=== PATIENT | female | born 1970 | race Caucasian/White ===

== ENCOUNTER 2023-08-18 11:17 | Inpatient (IN) | payer OTHER, SELFPAY ==
[2023-08-18] VITALS (66 sets, daily range): BP systolic 75–135; BP diastolic 46–83
--- NOTE | 2023-08-18 07:47 | ED.GENMED ---
History of Present Illness
<Trupti Piper PA-C - Last Filed: 08/18/23 11:51>
General
Chief Complaint: Weakness
Source: patient
Exam Limitations: none
Time Seen by Provider: 08/18/23 07:40
Nursing documentation reviewed up to this point in time: agreed with
Travel History
Have you had any contact with someone who has COVID-19?: No
Do you have any symptoms of coronavirus? Fever > 100 degrees, chills, cough, shortness of breath, sore throat, loss of taste or smell, muscle aches, or headache?: No
History of Present Illness
History of Present Illness:
53-year-old female with a history of diet-controlled diabetes, previous history of kidney stones presents for generalized weakness, nausea, chills, dehydration since 3�21. Patient says the onset of symptoms was mostly pain in her back. She thought
maybe she was going to be passing a kidney stone which she has done before previously. She is never had an infected stone but has had pyelonephritis before. The pain ultimately went away the following day but she became nauseated and had chills
and was very fatigued. Patient says she pretty much slept over 12 hours overnight and really has had no appetite and extreme fatigue with chills. She has not taken her temperature. She is still urinating but says not much. She thought she was
constipated so she took a Dulcolax and was able to have 2 bowel movements yesterday. She is not reporting any back pain or abdominal pain other than nausea. She has not had a sore throat or cough, neck stiffness, rash, recent travel, chest pain or
shortness of breath. She did not take anything for fever today
Past History
<Trupti Piper PA-C - Last Filed: 08/18/23 11:51>
Past History
ED Past Medical History: NIDDM and Other (broken left wrist in the past, kidney stones)
ED Past Surgical History: Appendectomy, (x2) and Urological
Patient has exhibited threatening behavior?: No
Social History
Tobacco: Smoker
Alcohol: None
Personal:
Living: with family
Employment: Employed
Family History
Family History: Unable to obtain
Review of Systems
<Trupti Piper PA-C - Last Filed: 08/18/23 11:51>
Review of Systems
Allergies reviewed?: Yes
Unable to obtain full review of systems at this time due to: due to acuity
All Other Systems: Not applicable
Phy Exam
<Trupti Piper PA-C - Last Filed: 08/18/23 11:51>
Physical Exam
Physical Exam:
GENERAL: Eyes closed but easily arousable, ill-appearing,
HEAD: NCAT
NECK: No neck stiffness
EYE: pupils equal and reactive, EOMs intact.
ENT: o/p clr, very dry mouth. no hemotympanum
CARDIAC: Regular rate and rhythm, no edema
LUNGS: Clear breath sounds bilaterally, no acu tachycardic to 140s no edema, no appreciated murmur te respiratory distress, no wheezes/rales/rhonchi
ABDOMEN: Soft, mild right upper quadrant tenderness, no r/g, no cvat
NEUROLOGICAL: Alert and oriented, no focal neuro deficits, CN intact, 5/5 strength, sensation intact
SKIN: Warm and dry,
MUSCULOSKELETAL: No edema, well perfused.
PSYCH: Normal and appropriate interaction.
Course
<Trupti Piper PA-C - Last Filed: 08/18/23 11:51>
Orders/Labs/Results
Orders:
Orders
08/18/23 Breakfast
NPO
Allow oral meds: No
Allow clear liquids: No
08/18/23 07:28
Electrocardiogram (*1) Urgent
Reason for Study: Bradycardia / Tachycardia
EKG- Treatment ONCE
08/18/23 07:46
Cardiac Monitoring- Treatment ONCE
Straight cath- Treatment ONCE
0.9% Sodium Chloride 1000 ml [Nss] 1,000 ml IV BOLUS
Acetaminophen 1000MG/100Ml [Ofirmev] 1,000 mg in 100 ml IV ONCE
Acetaminophen IV Indication:: Ileus/Delayed Bowel Func.
Ondansetron Injectable [Zofran] 4 mg IV NOW STA
08/18/23 08:01
Piperacillin/Tazo 3.375 Gram [Zosyn] 3.375 gram in 50 ml IV NOW
08/18/23 08:14
COVID-19 Antigen Urgent
Source: Nasal Swab
Complete Blood Count/With Diff Urgent
Comprehensive Metabolic Panel Urgent
Lactic Acid Q4H
Comment: CANCEL 2nd LACTIC ACID IF 1st LACTIC ACID IS LESS THAN 2
Lipase Urgent
Blood Culture Q30M
ANEUDY Source: Blood/Venous
Specimen Description:
Influenza A+B Rapid Molecular Urgent
ANEUDY Source: Nasal Swab
Specimen Description:
08/18/23 08:24
0.9% Sodium Chloride 1000 ml [Nss] 1,000 ml IV BOLUS
08/18/23 08:27
CT Abd/pelvis Wo Iv Cont Urgent
Reason For Exam: RIGHT SIDE PAIN, SEPSIS, EVAL STONE VS. PYELO
08/18/23 08:52
Blood Culture Q30M
ANEUDY Source: Blood/Venous
Specimen Description:
08/18/23 09:04
Urinalysis Reflex To Culture Urgent
Date Specimen was Collected: 08/18/23
Time Specimen was Collected: 09:02
Urine Microscopic Reflex Cult Urgent
Urine Culture Urgent
ANEUDY Source: U
Specimen Description:
Date Specimen was Collected: 08/18/23
Time Specimen was Collected: 09:02
08/18/23 09:15
NORepinephrine 4 MG/250 ML [Levophed] 4 mg in 250 ml IV PER PROTOCOL
Initial dose in mcg/min, then titrate:: 2
Titrate to keep:: SBP > 90 mmHg
Titrate by mcg/min:: 1-2 mcg/min
Frequency of titrations (minutes):: 5
Maximum dose in ICU in mcg/min:: 30
Maximum dose in IMU in mcg/min:: 8
Maximum dose in IVU in mcg/min:: 4
Begin to taper infusion when:: Remained at goal for 4hrs
Taper by mcg/min:: 1-2 mcg/min
Frequency of taper (minutes) if patient maintains goal:: 30
Taper to off?: Yes
If infusion off & no longer maintaining goal:: Contact Provider
08/18/23 09:16
Straight cath- Treatment ONCE
08/18/23 09:30
0.9% Sodium Chloride 1000 ml [Nss] 1,000 ml IV BOLUS
08/18/23 10:49
Admit/Transfer Patient As Directed
Co-Sign Provider:
Level of Care: Inpatient admission
Assign to:: ICU
Physician / Group: Malik
Diagnosis: septic shock/obstructing renal stone
Reason for Hospitalization: IVF/IV pressors/OR/ABX
Expected length of stay greater than two midnights?: Yes
ELOS- Estimated Length of Stay in days: 4
I certify the patient meets the requirements for IP care: Yes
08/18/23 10:50
Code Status As Directed
Resuscitation Status: Full Code
08/18/23 12:00
Lactic Acid Q4H
Comment: CANCEL 2nd LACTIC ACID IF 1st LACTIC ACID IS LESS THAN 2
08/18/23 13:21
Lactic Acid Q4H
Comment: repeat q4 hours x 4 or until less than 2 mmol/L
0.9% Sodium Chloride 1000 ml [Nss] 1,000 ml IV 125 mls/hr
Acetaminophen 1000MG/100Ml [Ofirmev] 1,000 mg in 100 ml IV Q6HPRN
Acetaminophen IV Indication:: No ND & No Enteral Access
Dextrose 50%-Water [Dextrose 50% Syringe] 12.5 grams IV [id number] PRN
Glucagon [GlucaGen] 1 mg IM PRN PRN
Insulin Aspart Corrective Low [Novolog Flexpen-Low Resistance] See Protocol SC AC
NORepinephrine 4 MG/250 ML [Levophed] 4 mg in 250 ml IV PER PROTOCOL
Currently infusing. Continue current dose and titrate:: Yes
Titrate to keep:: MAP > 65 mmHg
Titrate by mcg/min:: 1-2 mcg/min
Frequency of titrations (minutes):: 5
Maximum dose in ICU in mcg/min:: 30
Maximum dose in IMU in mcg/min:: 8
Maximum dose in IVU in mcg/min:: 4
Begin to taper infusion when:: Remained at goal for 4hrs
Taper by mcg/min:: 1-2 mcg/min
Frequency of taper (minutes) if patient maintains goal:: 30
Taper to off?: Yes
If infusion off & no longer maintaining goal:: Contact Provider
Pantoprazole [Protonix IV] 40 mg IV DAILY
08/18/23 13:21
Medical Device Consult Routine
Consulting Provider: Shar Street
Was physician already notified: Yes
UROLOGY CONSULT Routine
Consulting Provider: Pranav Aguirre
Was physician already notified: Yes
Urinalysis Reflex To Culture Urgent
Blood Culture Urgent
ANEUDY Source: Blood/Venous
Specimen Description:
Comment: IF NOT OBTAINED IN ED
Activity As Directed
Activity Level: Out of Bed-Early Mobility
Bedside Glucose Monitoring As Directed
Frequency: AC&HS
Comment: Change to q6h if pt on TPN, tube feeding or not eating
Intake/ Output As Directed
Frequency: Per unit guidelines
Pneumatic Compression Sleeves As Directed
Type: Knee high
Vital Signs As Directed
Frequency: Per unit guidelines
DX Deep Vein Thrombosis Video Routine
08/18/23 17:21
Lactic Acid Q4H
Comment: repeat q4 hours x 4 or until less than 2 mmol/L
08/18/23 21:21
Lactic Acid Q4H
Comment: repeat q4 hours x 4 or until less than 2 mmol/L
08/19/23 01:21
Lactic Acid Q4H
Comment: repeat q4 hours x 4 or until less than 2 mmol/L
08/19/23 06:00
Complete Blood Count/No Diff IN AM
Comprehensive Metabolic Panel IN AM
Glycohemoglobin (HgbA1c) IN AM
Abnormal Lab Results
08/18/23 08/18/23
08:14 09:04
WBC 2.3 L* 10^3/uL
(4.8-10.8)
Absolute Lymphs (auto) 0.1 L 10^3/uL
(1.2-3.4)
Absolute Monos (auto) 0.0 L 10^3/uL
(0.1-0.6)
Neutrophils % 92.7 H %
(42.2-75.2)
Lymphocytes % 5.7 L %
(20.5-51.1)
Monocytes % 0.4 L %
(1.7-9.3)
Sodium 133 L mmol/L
(135-145)
Potassium 3.3 L mmol/L
(3.5-5.1)
Chloride 109 H mmol/L
(98-107)
Carbon Dioxide 16 L mmol/L
(22-30)
BUN 28 H mg/dl
(7-17)
Creatinine 2.2 H mg/dL
(0.6-1.0)
Glucose 191 H mg/dl
(70-99)
Lactic Acid 2.1 H mmol/L
(0.7-2.0)
Calcium 10.5 H mg/dl
(8.4-10.2)
Total Bilirubin 2.2 H mg/dl
(0.2-1.3)
AST 68 H U/L
(14-36)
ALT 54 H U/L
(0-35)
Alkaline Phosphatase 217 H U/L
(38-126)
Albumin 3.4 L g/dl
(3.5-5.0)
Urine Ketones 1+ A
(Negative)
Ur Occult Blood Reflex 4+ A
(Negative)
Leukocyte Esterase Rfl 2+ A
(Negative)
Urine RBC 11-15 A /HPF
(0-2)
Urine WBC (Reflex) >100 A /HPF
(0-5)
Urine Bacteria (Reflex) Many A
(Negative)
Urine Albumin (Reflex) 3+ A
(Neg - Trace)
08/18/23 08:14
08/18/23 08:14
Vital Signs
Temp: 102.8 F
Initial and Last Documented VS:
Initial Vital Signs
Temp Pulse Resp BP Pulse Ox
99.6 F 145 16 101/58 93
08/18/23 07:25 08/18/23 07:25 08/18/23 07:25 08/18/23 07:25 08/18/23 07:25
Last Documented Vital Signs
Temp Pulse Resp BP Pulse Ox
97.5 F 101 22 95/59 95
08/18/23 13:45 08/18/23 13:56 08/18/23 13:56 08/18/23 13:56 08/18/23 13:56
<Henry Rosario MD - Last Filed: 08/18/23 14:02>
Orders/Labs/Results
Orders:
Orders
08/18/23 Breakfast
NPO
Allow oral meds: No
Allow clear liquids: No
08/18/23 07:28
Electrocardiogram (*1) Urgent
Reason for Study: Bradycardia / Tachycardia
EKG- Treatment ONCE
08/18/23 07:46
Cardiac Monitoring- Treatment ONCE
Straight cath- Treatment ONCE
0.9% Sodium Chloride 1000 ml [Nss] 1,000 ml IV BOLUS
Acetaminophen 1000MG/100Ml [Ofirmev] 1,000 mg in 100 ml IV ONCE
Acetaminophen IV Indication:: Ileus/Delayed Bowel Func.
Ondansetron Injectable [Zofran] 4 mg IV NOW STA
08/18/23 08:01
Piperacillin/Tazo 3.375 Gram [Zosyn] 3.375 gram in 50 ml IV NOW
08/18/23 08:14
COVID-19 Antigen Urgent
Source: Nasal Swab
Complete Blood Count/With Diff Urgent
Comprehensive Metabolic Panel Urgent
Lactic Acid Q4H
Comment: CANCEL 2nd LACTIC ACID IF 1st LACTIC ACID IS LESS THAN 2
Lipase Urgent
Blood Culture Q30M
ANEUDY Source: Blood/Venous
Specimen Description:
Influenza A+B Rapid Molecular Urgent
ANEUDY Source: Nasal Swab
Specimen Description:
08/18/23 08:24
0.9% Sodium Chloride 1000 ml [Nss] 1,000 ml IV BOLUS
08/18/23 08:27
CT Abd/pelvis Wo Iv Cont Urgent
Reason For Exam: RIGHT SIDE PAIN, SEPSIS, EVAL STONE VS. PYELO
08/18/23 08:52
Blood Culture Q30M
ANEUDY Source: Blood/Venous
Specimen Description:
08/18/23 09:04
Urinalysis Reflex To Culture Urgent
Date Specimen was Collected: 08/18/23
Time Specimen was Collected: 09:02
Urine Microscopic Reflex Cult Urgent
Urine Culture Urgent
ANEUDY Source: U
Specimen Description:
Date Specimen was Collected: 08/18/23
Time Specimen was Collected: 09:02
08/18/23 09:15
NORepinephrine 4 MG/250 ML [Levophed] 4 mg in 250 ml IV PER PROTOCOL
Initial dose in mcg/min, then titrate:: 2
Titrate to keep:: SBP > 90 mmHg
Titrate by mcg/min:: 1-2 mcg/min
Frequency of titrations (minutes):: 5
Maximum dose in ICU in mcg/min:: 30
Maximum dose in IMU in mcg/min:: 8
Maximum dose in IVU in mcg/min:: 4
Begin to taper infusion when:: Remained at goal for 4hrs
Taper by mcg/min:: 1-2 mcg/min
Frequency of taper (minutes) if patient maintains goal:: 30
Taper to off?: Yes
If infusion off & no longer maintaining goal:: Contact Provider
08/18/23 09:16
Straight cath- Treatment ONCE
08/18/23 09:30
0.9% Sodium Chloride 1000 ml [Nss] 1,000 ml IV BOLUS
08/18/23 10:49
Admit/Transfer Patient As Directed
Co-Sign Provider:
Level of Care: Inpatient admission
Assign to:: ICU
Physician / Group: Malik
Diagnosis: septic shock/obstructing renal stone
Reason for Hospitalization: IVF/IV pressors/OR/ABX
Expected length of stay greater than two midnights?: Yes
ELOS- Estimated Length of Stay in days: 4
I certify the patient meets the requirements for IP care: Yes
08/18/23 10:50
Code Status As Directed
Resuscitation Status: Full Code
08/18/23 12:00
Lactic Acid Q4H
Comment: CANCEL 2nd LACTIC ACID IF 1st LACTIC ACID IS LESS THAN 2
08/18/23 13:21
Lactic Acid Q4H
Comment: repeat q4 hours x 4 or until less than 2 mmol/L
0.9% Sodium Chloride 1000 ml [Nss] 1,000 ml IV 125 mls/hr
Acetaminophen 1000MG/100Ml [Ofirmev] 1,000 mg in 100 ml IV Q6HPRN
Acetaminophen IV Indication:: No ND & No Enteral Access
Dextrose 50%-Water [Dextrose 50% Syringe] 12.5 grams IV [id number] PRN
Glucagon [GlucaGen] 1 mg IM PRN PRN
Insulin Aspart Corrective Low [Novolog Flexpen-Low Resistance] See Protocol SC AC
NORepinephrine 4 MG/250 ML [Levophed] 4 mg in 250 ml IV PER PROTOCOL
Currently infusing. Continue current dose and titrate:: Yes
Titrate to keep:: MAP > 65 mmHg
Titrate by mcg/min:: 1-2 mcg/min
Frequency of titrations (minutes):: 5
Maximum dose in ICU in mcg/min:: 30
Maximum dose in IMU in mcg/min:: 8
Maximum dose in IVU in mcg/min:: 4
Begin to taper infusion when:: Remained at goal for 4hrs
Taper by mcg/min:: 1-2 mcg/min
Frequency of taper (minutes) if patient maintains goal:: 30
Taper to off?: Yes
If infusion off & no longer maintaining goal:: Contact Provider
Pantoprazole [Protonix IV] 40 mg IV DAILY
08/18/23 13:21
Medical Device Consult Routine
Consulting Provider: Shar Street
Was physician already notified: Yes
UROLOGY CONSULT Routine
Consulting Provider: Pranav Aguirre
Was physician already notified: Yes
Urinalysis Reflex To Culture Urgent
Blood Culture Urgent
ANEUDY Source: Blood/Venous
Specimen Description:
Comment: IF NOT OBTAINED IN ED
Activity As Directed
Activity Level: Out of Bed-Early Mobility
Bedside Glucose Monitoring As Directed
Frequency: AC&HS
Comment: Change to q6h if pt on TPN, tube feeding or not eating
Intake/ Output As Directed
Frequency: Per unit guidelines
Pneumatic Compression Sleeves As Directed
Type: Knee high
Vital Signs As Directed
Frequency: Per unit guidelines
DX Deep Vein Thrombosis Video Routine
08/18/23 17:21
Lactic Acid Q4H
Comment: repeat q4 hours x 4 or until less than 2 mmol/L
08/18/23 21:21
Lactic Acid Q4H
Comment: repeat q4 hours x 4 or until less than 2 mmol/L
08/19/23 01:21
Lactic Acid Q4H
Comment: repeat q4 hours x 4 or until less than 2 mmol/L
08/19/23 06:00
Complete Blood Count/No Diff IN AM
Comprehensive Metabolic Panel IN AM
Glycohemoglobin (HgbA1c) IN AM
Abnormal Lab Results
08/18/23 08/18/23
08:14 09:04
WBC 2.3 L* 10^3/uL
(4.8-10.8)
Absolute Lymphs (auto) 0.1 L 10^3/uL
(1.2-3.4)
Absolute Monos (auto) 0.0 L 10^3/uL
(0.1-0.6)
Neutrophils % 92.7 H %
(42.2-75.2)
Lymphocytes % 5.7 L %
(20.5-51.1)
Monocytes % 0.4 L %
(1.7-9.3)
Sodium 133 L mmol/L
(135-145)
Potassium 3.3 L mmol/L
(3.5-5.1)
Chloride 109 H mmol/L
(98-107)
Carbon Dioxide 16 L mmol/L
(22-30)
BUN 28 H mg/dl
(7-17)
Creatinine 2.2 H mg/dL
(0.6-1.0)
Glucose 191 H mg/dl
(70-99)
Lactic Acid 2.1 H mmol/L
(0.7-2.0)
Calcium 10.5 H mg/dl
(8.4-10.2)
Total Bilirubin 2.2 H mg/dl
(0.2-1.3)
AST 68 H U/L
(14-36)
ALT 54 H U/L
(0-35)
Alkaline Phosphatase 217 H U/L
(38-126)
Albumin 3.4 L g/dl
(3.5-5.0)
Urine Ketones 1+ A
(Negative)
Ur Occult Blood Reflex 4+ A
(Negative)
Leukocyte Esterase Rfl 2+ A
(Negative)
Urine RBC 11-15 A /HPF
(0-2)
Urine WBC (Reflex) >100 A /HPF
(0-5)
Urine Bacteria (Reflex) Many A
(Negative)
Urine Albumin (Reflex) 3+ A
(Neg - Trace)
08/18/23 08:14
08/18/23 08:14
Vital Signs
Initial and Last Documented VS:
Initial Vital Signs
Temp Pulse Resp BP Pulse Ox
99.6 F 145 16 101/58 93
08/18/23 07:25 08/18/23 07:25 08/18/23 07:25 08/18/23 07:25 08/18/23 07:25
Last Documented Vital Signs
Temp Pulse Resp BP Pulse Ox
97.5 F 101 22 95/59 95
08/18/23 13:45 08/18/23 13:56 08/18/23 13:56 08/18/23 13:56 08/18/23 13:56
<Trupti Piper PA-C - Last Filed: 08/18/23 11:51>
MDM/Problems Addressed
Differential Diagnosis Includes:
urosepsis, septic shock, infected stone, pyelo
MDM/Problems Addressed:
53 y/o F with h/o kidney stones
here with fever, fatigue, nausea after having R sided back pain 4 days ago , then became very fatigued/weak
pt appears dehydrated
pale
had hr 150 on arrival with temp 102.7
midl RUQ tendnress
given her history of stones, i was extremely concerned she had infected obstructing stone
i reached out to urology prior to patient's results
she was valdez cutulred, started on empiric 30/kg fluids resuscitation for bp dropping to 70s-80s and given zosyn (based on previous urine cultures)
all prior to imaging
due to AUBREY she cannot have contrasst
ct reviewed with radiologist
obstructing 8 mm stone with hydro
dr. aguirre will take pt to OR
pt will be admitted to ICU, given her persistent hypotension, will also initiate levophed
pt dx septic shock
<Trupti Piper PA-C - Last Filed: 08/18/23 11:51>
*Critical Care Note
Total Time (30-74mins, 75-104mins- exclusive of procedures): Not Applicable (60 min)
comment:
bp control, fluid resuscitation, mutiple consultants; reassessment
ED Attending Note
<Trupti Piper PA-C - Last Filed: 08/18/23 11:51>
-
Portions of this chart may have been created with voice recognition software.� Occasional wrong word or��sound alike� substitutions may have occurred due to the inherent limitations of voice recognition software.
<Henry Rosario MD - Last Filed: 08/18/23 14:02>
ED Attending Note
Patient seen and examined by attending physician: Yes
ED Attending Note:
Patient presents ED secondary to 4-day history of loss of appetite, along with lower abdominal pain and multiple vomiting episodes. Denies fever, but reports chills sensation. Abdominal pain described as dull, achy, but different from her previous
pain related to kidney stones. Denies back pain. Denies trauma. Denies recent illness. Denies recent sick contact. Denies recent change in medications or diet. Denies recent travel. Denies difficulty with urination. Denies urinary frequency.
Patient's surgical history is significant for appendectomy. Since onset of symptoms, patient states that she has had multiple bowel movements, which did not alleviate any of her discomfort.
Physical Exam
General: moderate distress, acutely ill. febrile. tachycardic
Head: nc/at. eomi.
Neck: supple. no meningeal signs.
Heart: tachycardic, no murmur. equal radial pulses.
Lungs: no acute respiratory distress. clear bilaterally
Abdomen: normal bowel sounds. mild RLQ tenderness to palpation.
Neuro: alert and oriented. no focal neurological deficits
Skin: no rash
Psychiatric: well kept. interactive and cooperative
Extremities: no edema. no calf tenderness.
Patient evaluated immediately and started on fluid resuscitation secondary to extreme tachycardia along with hypotension. After 2 L IV fluids, patient remains hypotensive with systolic blood pressure in 80s. Along with continued IV fluids,
Levophed infusion started.
CT abdomen pelvis concerning for obstructing renal stone.
History and exam consistent with cyst sepsis, likely secondary to infected renal stone. Dr. Aguirre, urology, notified via [place] text. Will proceed to the OR. In the meantime, antibiotics, i.e. Zosyn started. Patient will be admitted to ICU
for further evaluation and treatment.
Critical care statement: A total of 60 minutes of critical care time was provided for this patient. This includes management of unstable vital signs, evaluation of the patient at bedside, reviewing the patient's pertinent medical records, discussion
with consultants, review of old EKGs and review of pertinent medical records. This time with separate from time utilized to perform the aforementioned documented procedures
Discharge Plan
Departure
Patient Disposition: Admit
Date of Disposition: 08/18/23
Time of Disposition: 09:57
Admit to: ICU
Presentation/result/management discussed w/ accepting MD/DO: malka
Discharge Problem:
Severe sepsis
Interventions
Interventions:
*Risk Screen - Suicide Last Done: 08/18/23 08:10
*General Assessment Last Done: 08/18/23 08:10
*Neglect/Abuse Screening Last Done: 08/18/23 08:10
ED- Fall Risk Assessment Last Done: 08/18/23 08:10
*ED COVID-19 Vaccine History Last Done: 08/18/23 07:25
*Nursing Disposition Last Done: 08/18/23 12:15
ED- Cardiac Assessment Last Done: 08/18/23 08:10
ED- Pulmonary Assessment Last Done: 08/18/23 08:10
Discharge Date and Time
Discharge Date/Time: 08/18/23 12:15
[2023-08-18] MEDS: NSS 1000 IV ×5 (08:15→20:08)
[2023-08-18] MEDS: OFIRMEV 100 IV (08:16)
[2023-08-18] MEDS: ZOFRAN 4 MG IV (08:17)
[2023-08-18 08:25] LABS: % Basophils 0.4 % (0-2); % Eosinophils 0.4 % (0-6); % Immature Granulocytes 0.4 % (0-0.5); % Lymphocytes 5.7 % (20.5-51.1); % Monocytes 0.4 % (1.7-9.3); % Neutrophils 92.7 % (42.2-75.2); Absolute Lymphocytes 0.1 10^3/uL (1.2-3.4); Absolute Neutrophils 2.1 10^3/uL (1.4-6.5); Hematocrit 39.8 % (37.0-47.0); Hemoglobin 13.9 g/dL (12.0-16.0); Mean Corp Hgb Conc. 34.9 g/dL (33.0-37.0); Mean Corpuscular Hgb 30.2 pg (27.0-31.0); Mean Corpuscular Volume 86.5 fL (81.0-99.0); Mean Platelet Volume 9.2 fL (7.4-10.4); Nucleated Red Blood Cells % 0 %; Platelet Count 161 10^3/uL (130-400); Red Cell Dist. Width 13.9 % (11.5-14.5)
[2023-08-18 08:33] LABS: White Blood Cell Count 2.3 10^3/uL (4.8-10.8)
[2023-08-18 08:48] LABS: Lactic Acid 2.1 mmol/L (0.7-2.0)
[2023-08-18] MEDS: ZOSYN 50 IV ×3 (09:05→21:35)
[2023-08-18 09:19] LABS: COVID-19 Antigen Negative (Negative)
[2023-08-18 09:27] LABS: Urine Albumin 3+ (Neg - Trace); Urine Bilirubin Negative (Negative); Urine Character Very Cloudy (Clear); Urine Color Amber; Urine Glucose Negative (Negative); Urine Ketone 1+ (Negative); Urine Leukocyte 2+ (Negative); Urine Nitrite Negative (Negative); Urine Occult Blood 4+ (Negative); Urine Urobilinogen Negative (Neg - 1+)
[2023-08-18 09:35] LABS: ALT (SGPT) 54 U/L (0-35); AST (SGOT) 68 U/L (14-36); Albumin 3.4 g/dl (3.5-5.0); Alkaline Phosphatase 217 U/L (38-126); Blood Urea Nitrogen 28 mg/dl (7-17); Calcium 10.5 mg/dl (8.4-10.2); Carbon Dioxide 16 mmol/L (22-30); Chloride 109 mmol/L (98-107); Estimated Creatinine Clearance 32 ml/min; Glucose 191 mg/dl (70-99); Lipase 30 U/L (23-300); Potassium 3.3 mmol/L (3.5-5.1); Sodium 133 mmol/L (135-145); Total Bilirubin 2.2 mg/dl (0.2-1.3); Total Protein 6.4 g/dl (6.3-8.2); eGFR 25.99
[2023-08-18 09:50] LABS: Urine Bacteria Many (Negative); Urine Epithelial Cast 0-2 /LPF
[2023-08-18 09:51] LABS: Urine White Cell >100 /HPF (0-5)
[2023-08-18] MEDS: LEVOPHED 250 IV (10:15)
--- NOTE | 2023-08-18 10:40 | HPS.HSE ---
Family Physician
-
Family Physician: Eugene Molina MD
Chief Complaint
-
abdominal pain
History of Present Illness
Patient is a 53-year-old female whose had kidney stones in the past. On of the week prior to admission she stated that she developed right-sided abdominal pain which lasted all weekend. She did think that she had a kidney stone but it did
not pass on her own. She admitted to chills/rigors and sweats but did not take her temperature. On arrival to the emergency department she was found to have 102.7 temp. She complained of lightheadedness, dizziness, nausea, dry heaves and no
appetite. She denied any dysuria or urinary symptoms. Workup finds her to have an obstructing stone with relative hypotension and the patient is being admitted to the intensive care unit after being started on pressors.
Medical History
Past Medical History
Past Medical History: Reports Other
Additional Past Medical History:
Diet controlled type 2 diabetes mellitus
Essential hypertension not on medications (patient states that her blood pressure runs 145/100)
Past Surgical History: Reports Other
Additional Past Surgical History:
Appendectomy
Left wrist surgery
2 C-sections
Social History
Tobacco: Smoker (Last cigarette was 3 days ago)
Alcohol: None
Drug: None
Personal:
Living: With Family
Family History
Family History: Other (Cancer)
Allergies / Home Medications
Allergies reflects when Allergies were last updated in [employer]
Home Medications with original date entered in [employer]
Allergy/Medication List:
Allergies
Allergy/AdvReac Type Severity Reaction Status Date / Time
No Known Allergies Allergy Verified 08/18/23 07:28
Home Medications
naproxen sodium 220 mg tablet (Aleve) 440 mg PO [id number] PRN mild pain 12/19/21
hydrocodone 5 mg-acetaminophen 300 mg tablet 1 tab PO BID PRN severe pain 08/18/23
therapeutic multivitamin 1 tab PO DAILY supplement 08/18/23
Review of Systems
-
History Source: Patient
A 12 point ROS was completed and negative except as noted: Yes
Constitutional: Reports Night Sweats and Chills; Denies Fever
EENT: Reports No Symptoms
Respiratory: Reports No Symptoms
Cardiac: Reports No Symptoms
Abdomen/GI: Reports Abdominal Pain, Nausea and Vomiting (Dry heaves--has not had anything to eat since when this started)
: Denies Dysuria, Frequency or Bleeding
Musculoskeletal: Reports No Symptoms
Skin: Reports No Symptoms
Neurological: Reports Dizzy (Lightheaded)
Endocrine: Reports No Symptoms
Hematologic/Lymphatic: Reports No Symptoms
Psych: Reports No Symptoms
Physical Exam
Vital Signs
Vital Signs
Temp Pulse Resp BP Pulse Ox
99.0 F 108 29 90/57 96
08/18/23 09:33 08/18/23 10:30 08/18/23 10:30 08/18/23 10:13 08/18/23 10:30
Physical Exam
General: Well Developed, Well Nourished and No Apparent Distress
HEENT: NormoCephalic, Anicteric and Atraumatic; No Oxygen
Respiratory: Clear; No Wheezes, Rales, Rhonchi or Crackles
Cardiac: S1/S2 and Regular Rhythm; No Murmur
GI: Soft, Non Distended, Normal Bowel Sounds and Tender (Right upper quadrant)
Musculoskeletal: No Clubbing, No Cyanosis and No Edema
Skin: Warm
Neuro: Awake and Alert
Psych: Calm
Laboratory Results
-
08/18/23 08:14
08/18/23 08:14
Laboratory Results
Lactic Acid 2.1 mmol/L (0.7-2.0) H 08/18/23 08:14
Total Bilirubin 2.2 mg/dl (0.2-1.3) H 08/18/23 08:14
AST 68 U/L (14-36) H 08/18/23 08:14
ALT 54 U/L (0-35) H 08/18/23 08:14
Alkaline Phosphatase 217 U/L (38-126) H 08/18/23 08:14
Lipase 30 U/L (23-300) 08/18/23 08:14
Impression/Plan
-
Patient is a 53-year-old female
Septic shock--(criteria hypotension, leukopenia, fever to 102)--requiring pressors after 3 L of sepsis fluid resuscitation--due to obstructing renal stone--ADMIT TO ICU--check blood and urine cultures, continue Zosyn--await urology input--likely to
OR later today--wean levophed to off
Acute kidney injury--likely due to obstructing renal stone--continue IV fluids--consider Zhu catheter
Hypokalemia--replete
Type 2 diabetes mellitus diet controlled--start Accu-Cheks low-dose with sliding scale coverage
Essential hypertension-no medications--now hypotensive on pressors
DVT prophylaxis
CODE STATUS--full code
--- NOTE | 2023-08-18 10:40 | CM ---
Patient seen in ED with physician. Patient lives with her in a 2 story home and 2 sons. Patient has no DME or VN needs in the past. Patient PCP is Dr. Cohen and she uses the [facility] in [place]. Patient plan is home with no needs. CM
will continue to follow for discharge planning needs.
Plan; OR today; TBD needs pending functional assessments
--- NOTE | 2023-08-18 11:44 | W.PN.URO.CBU ---
Today's Communication / Plan
-
to op room
Assessment / Plan
-
rt 8 mm stone prox ureter wih sepsis t O OP ROOM to stent then icu
Diagnosis
-
Date of Service: August 18, 2023
-
Patient Diagnosis:
urosepsi due to8 mm prox stone low bp olevopehd
Post Op Day:
Subjective
-
fever chills colic
Objective
-
Vital Signs
Temp Pulse Resp BP Pulse Ox
99.0 F 104 26 86/60 91
08/18/23 09:33 08/18/23 11:30 08/18/23 11:30 08/18/23 11:30 08/18/23 11:30
Intake and Output
08/17/23 08/18/23 08/19/23
06:59 06:59 06:59
Intake Total 3150 / 3150
Balance 3150 / 3150
Intake:
IV fluids (Total) 3150 / 3150
NSS 3000 / 3000
Ofirmev 100 / 100
Zosyn 50 / 50
Laboratory Results
08/18/23 08:14
08/18/23 08:14
Review of Systems
-
Constitutional: Fever, Fatigue and Chills
: Flank Pain
Physical Exam
-
General - well developed, well nourished, no acute distress
Chest - clear bilaterally
Abdomen - soft, non-tender, positive bowel sounds, no CVAT, no incisional pain or distention
Genitalia - normal
Rectal - normal
Skin - warm & dry with no rash
Neuro - AOx3, no motor deficits
Extremities - no clubbing, no cyanosis, no edema
Incision - clean, dry
Dressing - clean, dry, intact
Counseling
-
did h and p consented set up oproom
Care Review
Data Reviewed
Discussed with: Hospitalist, Nursing and Other (anesthesia)
CT Scan: Image Pers Reviewed
[2023-08-18 13:12] LABS: Glucose - Point of Care 256 mg/dl (70-99)
[2023-08-18] MEDS: NOVOLOG vial 6 UNITS SC (13:25)
[2023-08-18] MEDS: PROTONIX IV 40 MG IV (14:24)
[2023-08-18] MEDS: NSS (PRESERVATIVE FREE) 10 ML IV (14:24)
--- NOTE | 2023-08-18 14:30 | PTCARENOTE ---
Received pt. from PACU into ICU rm [id number] @ approx 1400. Pt. AAOx3, denies pain, MARRERO. SR/ST on monitor. SpO2 96% on 2LNC. Hypoactive BS, abd soft/obese. Zhu in place draining cloudy/joni urine. #20 R AC w IVF and levo gtt-see flow sheet. #20 L AC
patent, dressing c/d/i. Instructed on how to report care concerns and call mcgregor in reach.
--- NOTE | 2023-08-18 14:54 | CON.INTV ---
Consultation
Consultation Request
Date/Time Consultation Requested: 13:21, 08/18/2023
Date/Time Consultation Performed: 14:45, 08/18/2023
Medical History
-
Chief Complaint: fever, dizziness
History of Present Illness:
54-year-old female reports having right-sided abdominal pain, fever with chills/rigors since 4 days. She presented today to the ER reporting dizziness. She had a past history of renal stones. She was diagnosed with having low renal stone, sepsis
and hypotension requiring pressors.
Past Medical History
Past Medical History: HTN (Not on any medications) and NIDDM (Diet controlled)
Past Surgical History: Appendectomy, (2) and Other (Left wrist surgery)
Social History
Tobacco: Smoker
Alcohol: None
Drug: None
Personal:
Living: With Family
Family History
Family History: Cancer
Allergies / Home Medications
Allergies
Allergy/AdvReac Type Severity Reaction Status Date / Time
No Known Allergies Allergy Verified 08/18/23 07:28
Home Medications
Medication Instructions Recorded Confirmed Last Taken Type
naproxen sodium 220 mg tablet 440 mg PO [id number] PRN mild pain 12/19/21 08/18/23 12/18/21 History
(Aleve)
hydrocodone 5 mg-acetaminophen 300 1 tab PO BID PRN severe pain 08/18/23 08/18/23 08/17/23 History
mg tablet
therapeutic multivitamin 1 tab PO DAILY supplement 08/18/23 08/18/23 Unknown History
Review of Systems
-
History Source: Patient
All other systems: Negative unless noted
Abdomen/GI: Abdominal Pain
Vitals / Labs / Diagnostic Testing
Vital Signs
Temp Pulse Resp BP Pulse Ox
98.1 F 95 26 100/57 96
08/18/23 14:23 08/18/23 14:30 08/18/23 14:30 08/18/23 14:30 08/18/23 14:42
Lab Data
08/18/23 08:14
08/18/23 08:14
Microbiology
08/18/23 08:14 Nasal Swab Influenza Types A & B (NORM) - Final
Negative for Influenza A & B, NAAT
Negative results must be combined with clinical observations
and patient history.
Nucleic Acid Amplification test (NAAT)performed on the
[employer] platform.
Diagnostic Testing:
Physical Exam
-
HEENT: Normocephalic and Anicteric
Cardiovascular: S1/S2 and Regular Rhythm
Respiratory: Clear
GI: Soft, Non Distended and Other (Generalized mild tenderness)
Neurology: Awake, Alert, Oriented and AO x 3
Skin: Warm and Dry
Assessment
-
53-year-old female presented to the ER with hypotension due to sepsis requiring pressors, diagnosed with renal stone as a source for sepsis, operated in OR for ureteral stenting (JJ stent).
Patient is currently hemodynamically stable, on norepinephrine. She is on 2 L oxygen, SpO2 95%.
Conditions prior to admission
Type 2 diabetes mellitus, diet controlled
History of renal stones
Assessment and plan
Septic shock
Hypotension on admission
Leukopenia, WBC 2.3
Lactate 2.1
Source of infection, possibly from renal stone
Patient operated in the OR, ureteral stenting with JJ stent
Started on Zosyn
On Levophed
Blood cultures
Urine cultures
Acute kidney injury
Possibly due to obstructing renal stone
Creatinine at 2.2, BUN 28
Potassium 3.3
Replete potassium
IV fluids
Trend BMP in a.m.
Type II DM
Diet controlled before admission
Accu-Cheks, sliding scale coverage
Pantoprazole IV
DVT prophylaxis
SCD
[2023-08-18 15:25] LABS: Urine Albumin 1+ (Neg - Trace); Urine Bilirubin Negative (Negative); Urine Character Very Cloudy (Clear); Urine Color Yellow; Urine Glucose Trace (Negative); Urine Ketone 1+ (Negative); Urine Leukocyte 2+ (Negative); Urine Nitrite Negative (Negative); Urine Occult Blood 4+ (Negative); Urine Urobilinogen Negative (Neg - 1+)
[2023-08-18 15:31] LABS: Urine Bacteria Many (Negative); Urine White Cell 30-40 /HPF (0-5)
[2023-08-18 15:44] LABS: Lactic Acid 1.7 mmol/L (0.7-2.0)
[2023-08-18] MEDS: KLOR-CON 40 MEQ PO (17:04)
[2023-08-18 17:06] LABS: Glucose - Point of Care 283 mg/dl (70-99)
[2023-08-18] MEDS: NOVOLOG FLEXPEN-MODERATE RESISTANCE 5 UNITS SC (17:48)
[2023-08-18] MEDS: NICODERM TRANSDERMAL 7 MG TRANSDERM (18:26)
--- NOTE | 2023-08-18 19:33 | PTCARENOTE ---
Received pt resting in bed with family at bedside. AAOx3, pleasant. No pain at this time. Reports mild dizziness if trying to sit up. SR on tele. HR 80. BP 100s/70s. Maintained on levophed gtt for MAP>65. No edema, + pulses, afebrile. On 2L NC.
Lungs CTA but dim at L base. Round, obese abd. Hypoactive bowel sounds. 2000cal diab diet. OK appetite reported. Zhu draining joni urine. Skin c/d/i. B/L AC #20s patent. Levo and NSS @ 125ml/hr infusing. Monitoring
[2023-08-18 21:52] LABS: Glucose - Point of Care 341 mg/dl (70-99)
[2023-08-18] MEDS: NOVOLOG FLEXPEN 10 UNITS SC (22:08)
[2023-08-18] MEDS: HEPARIN 5000 UNITS SC (23:03)
[2023-08-18] MEDS: MELATONIN 10 MG PO (23:10)
--- NOTE | 2023-08-18 23:41 | PTCARENOTE ---
HS accucheck = 341. BENCH CARPENTER notified. 10 units novolog ordered and administered. Order to recheck at 0200. Levophed was weaned off ~1999. BP 90s/50s (MAPs >65). Weaned to RA, spo2 95%. Pt without complaints. Melatonin given. Zhu care provided
[2023-08-19] VITALS (73 sets, daily range): BP systolic 78–129; BP diastolic 51–101; BMI 32.8
[2023-08-19 02:07] LABS: Glucose - Point of Care 259 mg/dl (70-99)
[2023-08-19] MEDS: NOVOLOG FLEXPEN 7 UNITS SC (02:28)
[2023-08-19] MEDS: ZOSYN 50 IV ×4 (03:31→21:32)
[2023-08-19 03:47] LABS: Hematocrit 28.9 % (37.0-47.0); Hemoglobin 10.2 g/dL (12.0-16.0); Mean Corp Hgb Conc. 35.3 g/dL (33.0-37.0); Mean Corpuscular Hgb 30.8 pg (27.0-31.0); Mean Corpuscular Volume 87.3 fL (81.0-99.0); Mean Platelet Volume 10.1 fL (7.4-10.4); Platelet Count 134 10^3/uL (130-400); Red Blood Cell Count 3.31 10^6/uL (4.20-5.40); Red Cell Dist. Width 14.6 % (11.5-14.5); White Blood Cell Count 21.8 10^3/uL (4.8-10.8)
[2023-08-19 03:58] LABS: INR 1.45; PT 17.5 Sec (11.4-14.6)
[2023-08-19 03:59] LABS: APTT 40.6 Sec (23.4-35.0)
[2023-08-19 04:36] LABS: ALT (SGPT) 37 U/L (0-35); AST (SGOT) 28 U/L (14-36); Albumin 2.5 g/dl (3.5-5.0); Alkaline Phosphatase 116 U/L (38-126); Blood Urea Nitrogen 26 mg/dl (7-17); Calcium 8.7 mg/dl (8.4-10.2); Carbon Dioxide 16 mmol/L (22-30); Chloride 114 mmol/L (98-107); Estimated Creatinine Clearance 50 ml/min; Glucose 219 mg/dl (70-99); Phosphorus 2.8 mg/dl (2.5-4.5); Potassium 3.8 mmol/L (3.5-5.1); Sodium 134 mmol/L (135-145); Total Bilirubin 1.4 mg/dl (0.2-1.3); eGFR 44.71
[2023-08-19] MEDS: NSS 1000 IV (04:43)
[2023-08-19] MEDS: SODIUM BICARBONATE 1150 MEQ IV (05:49)
[2023-08-19] MEDS: TYLENOL 650 MG PO (05:57)
[2023-08-19] MEDS: KCL 20 MEQ PO ×2 (05:58→16:39)
[2023-08-19] MEDS: LEVOPHED 250 IV (07:06)
[2023-08-19 07:48] LABS: Glucose - Point of Care 200 mg/dl (70-99)
--- NOTE | 2023-08-19 08:30 | PTCARENOTE ---
Received pt @ change of shift. AAOX3, no c/o pain, MARRERO. SR on monitor. SpO2 96% on RA. Nightshift RN turned levo gtt back on to keep MAP >65- see flow sheet. Cont BM. Zhu in place w joni/sediment/cloudy urine. # 20 R/L AC patent, dressing c/d/i.
Pt. instructed on how to report care concerns and call mcgregor in reach.
[2023-08-19 08:43] LABS: Glycohemoglobin (HgbA1c) 7.2 % (4.0-5.6)
[2023-08-19] MEDS: NICODERM TRANSDERMAL 7 MG TRANSDERM (08:52)
[2023-08-19] MEDS: PROTONIX IV 40 MG IV (08:53)
[2023-08-19] MEDS: NSS (PRESERVATIVE FREE) 10 ML IV (08:53)
[2023-08-19] MEDS: NOVOLOG FLEXPEN-MODERATE RESISTANCE 3 UNITS SC (08:54)
[2023-08-19] MEDS: HEPARIN 5000 UNITS SC ×3 (08:59→23:08)
--- NOTE | 2023-08-19 09:10 | W.PN.HOSP.TC ---
Today's Communication/Plan
-
repeat blood cultures until clear
cont IVF at lower dose
follow urine culture
wean pressors
hopeful start metformin tomorrow
OOB
Assessment / Plan
Assessment / Plan
Patient is a 53-year-old female
Septic shock--(POA)--requiring pressors after 3 L of sepsis fluid resuscitation--due to obstructing renal stone-- blood culture with gm neg bacilli (identification pending), repeat until clear--cont zosyn (pharmacy to dose as renal function
improved)--await urine culture, apprec urology input, stent placed, stone pushed out of the way, pus noted--wean levophed to off
Acute kidney injury--likely due to obstructing renal stone--continue IV fluids--improving
Hypokalemia--replete
Type 2 diabetes mellitus diet controlled--increase Accu-Cheks with sliding scale coverage--would like to start metformin but creat still a bit elevated--hope to start tomorrow 08/19--HGB A1C 7.2
Essential hypertension-no medications--now hypotensive on pressors--wean pressors to off as able--would prefer to hold on midodrine (BP should improve with treatment of sepsis)
DVT prophylaxis
CODE STATUS--full code
Anticipated Discharge: > 48 hours
Subjective/Interval History
-
Date of Service: August 19, 2023
pt feeling much better--restarted on pressors
Objective Data
-
Labs:
Laboratory Results
08/19/23
03:36
WBC 21.8 H
Hgb 10.2 L D
Hct 28.9 L
Plt Count 134
PT 17.5 H
INR 1.45
APTT 40.6 H
Sodium 134 L
Potassium 3.8
Chloride 114 H
Carbon Dioxide 16 L
BUN 26 H
Creatinine 1.4 H
Glucose 219 H
Calcium 8.7 D
Total Bilirubin 1.4 H
AST 28
ALT 37 H
Alkaline Phosphatase 116
Vital Signs:
max temp for 24 hours
08/18/23
14:23
Temp 98.1 F
Vital Signs
Temp Pulse Resp BP Pulse Ox
97.7 F 74 16 89/61 95
08/19/23 07:53 08/19/23 07:00 08/19/23 07:00 08/19/23 06:30 08/19/23 07:00
I&O
08/18/23 08/19/23 08/20/23
06:59 06:59 06:59
Intake Total 5302.5 / 5302.5
Output Total 1550 / 1550
Balance 3752.5 / 3752.5
Review of Systems
-
All other systems: Reviewed and negative
Physical Exam
-
General: Well Developed, Well Nourished and No Apparent Distress
HEENT: Normocephalic and Atraumatic
Respiratory: Clear to Auscultation; Negative Wheezes or Rhonchi
Cardiac: Regular Rhythm and S1/S2; Negative Murmur
GI: Soft, Nontender, Nondistended and Normal Bowel Sounds
Genito-urinary: Clear Urine and Zhu
Musculoskeletal: No Clubbing, No Cyanosis and No Edema
Neuro: Awake and Alert
--- NOTE | 2023-08-19 09:16 | CM ---
Patient seen at bedside with physician. Patient eager to go home but understanding of treatment plan. CM will continue to follow for discharge planning needs.
Plan; home with no needs vs home with VN
--- NOTE | 2023-08-19 11:42 | W.PN.URO.CBU ---
Today's Communication / Plan
-
per hospitaist
Assessment / Plan
-
rt 8 mm stone prox ureter wih sepsis now stented plan per hosptial;ist but eventual outpatient stone / laser tx once recovered to home
Diagnosis
-
Date of Service: August 19, 2023
-
Patient Diagnosis:
Post Op Day:
Patient Diagnosisbacteremis due to obstructing stonme now stented
Post Op Day:
Subjective
-
much better
Objective
-
Vital Signs
Temp Pulse Resp BP Pulse Ox
97.4 F 81 18 87/75 96
08/19/23 11:24 08/19/23 09:31 08/19/23 09:31 08/19/23 09:31 08/19/23 09:40
Intake and Output
08/18/23 08/19/23 08/20/23
06:59 06:59 06:59
Intake Total 5302.5 / 5385.0 247.5 / 247.5
Output Total 1550 / 1550
Balance 3752.5 / 3835.0 247.5 / 247.5
Intake:
Oral fluids 480 / 480
IV fluids (Total) 4722.5 / 4805.0 247.5 / 247.5
Levo 22.5 / 30.0 22.5 / 22.5
NSS 4425 / 4425
Normosol 50 / 50
Ofirmev 100 / 100
Sterile Water For Injection 75 / 150 225 / 225
1000 ml 1,000 ml @ 75 mls/hr IV
.[id number] HOLLY with Sodium
Bicarbonate 150 Meq Rx#:
[id number]
Zosyn 50 / 50
IV piggybacks 100 / 100
Output:
Urine, Zhu 1550 / 1550
Laboratory Results
08/19/23 03:36
08/19/23 03:36
Review of Systems
-
: No Symptoms
Physical Exam
-
General - well developed, well nourished, no acute distress
Chest - clear bilaterally
Abdomen - soft, non-tender, positive bowel sounds, no CVAT, no incisional pain or distention
Genitalia - normal
Rectal - normal
Skin - warm & dry with no rash
Neuro - AOx3, no motor deficits
Extremities - no clubbing, no cyanosis, no edema
Incision - clean, dry
Dressing - clean, dry, intact
Care Review
Data Reviewed
Discussed with: Nursing and Family
CT Scan: Image Pers Reviewed
[2023-08-19 12:25] LABS: Glucose - Point of Care 208 mg/dl (70-99)
[2023-08-19 12:31] LABS: Venous Blood Gas B.E. -4.7 mmol/L (-4 to +4); Venous Blood Gas HCO3 19.4 mmol/L (22-27); Venous Blood Gas O2 Sat % 99.8 %; Venous Blood Gas pCO2 32 mmHg (35-48); Venous Blood Gas pH 7.39 (7.32-7.43); Venous Blood Gas pO2 164 mmHg (30-50)
[2023-08-19] MEDS: LANTUS 0.149999999999999994 UNITS SC (12:37)
[2023-08-19] MEDS: NOVOLOG FLEXPEN-HIGH RESISTANCE 4 UNITS SC ×2 (13:08→18:14)
[2023-08-19 13:18] LABS: Glucose - Point of Care 215 mg/dl (70-99)
--- NOTE | 2023-08-19 13:47 | PN.CDI ---
Addendum entered and electronically signed by Camille Romero MD 08/20/23 10:24:
Documentation complete.
Original Note:
CDI
- -
CDI:
Physician Documentation Request
Admit Date: 08/18/23 11:17
Dear Doctor Nick,
Patient admitted with septic shock requiring pressure due to obstruction renal stone as well as AUBREY.
BP low of 75/65
Please clarify which of the following accurately represents the patient's renal status:
____ - AUBREY with ATN
____ - AUBREY only
____ - Other
Use of terms such as suspected, likely, concern for, or probable (associated with a specific diagnosis that is being evaluated, monitored, or treated as if it exists) are acceptable and can be coded in the inpatient setting, when documented at the
time of discharge.
Thank you,
Regla Ragsdale RN, BSN
CDI Specialist
tiger text
Please use your independent medical judgment in providing your response.
*Source: Kidney Disease: Improving Global Outcomes (KDIGO) 2012
--- NOTE | 2023-08-19 14:18 | W.PN.INTV ---
Today's Communication / Plan
Recommendations
Insulin Lantus 15�15
Venous blood gas
K supplementation 20 mEq
Assessment
-
53-year-old female with past medical history of renal stones and type II DM presented to the ER with hypotension due to sepsis requiring pressors, diagnosed with acute pyelonephritis and started on IV antibiotics. Urology consulted and operated in
OR for ureteral stenting (JJ stent), transferred to the ICU postoperatively for further management.
Patient is currently hemodynamically stable, on norepinephrine, weaned off oxygen, now on room air.
CT Abd/Pelvis without contrast 08-18-2023:
1. 8 mm stone at the right ureteropelvic junction, associated with mild hydronephrosis of the right kidney.
2. Large number of small intrarenal stones are seen within the intrarenal collecting system of each kidney as detailed above, nonobstructing.
3. 2.7 cm left adrenal lesion, unchanged compared to prior study, likely representing a benign adenoma.
4. Diffuse fatty infiltration of the liver, with mild hepatomegaly.
5. Bilateral pars defects at L5.
Impression:
#Septic shock due to stone-related complicated UTI
#Acute pyelonephritis due to right-UPJ 8mm stone s/p ureteral JJ-stent insertion (POD#0)
#AUBREY - due to stone in setting of shock
#Acute respiratory failure with hypoxemia on supplemental oxygen
#Lactic acidosis
#Metabolic acidosis with normal AG
#Hyperglycemia
#Transaminitis
#Active tobacco smoker
Conditions prior to admission
Type 2 diabetes mellitus, diet controlled
History of renal stones
Assessment and plan
Septic shock/acute pyelonephritis
Hypotension and Leukopenia, WBC 2.3 on admission
Patient operated in the OR, ureteral stenting with JJ stent
ESWL as outpatient.
Started on Zosyn, today is day 2 of antibiotics
Leukocytosis WBC 21.8
Continue levophed and wean as tolerated while keeping MAP>65
Blood cultures E. coli
Urine cultures-E. coli
Acute kidney injury
Possibly due to obstructing renal stone, acute pyelonephritis
Creatinine at 1.4, trend creatinine and urine output
Patient had Zhu catheter
Potassium repleted, K�3.8, K supplementation�20 mEq
IV fluids
Trend BMP in a.m.
Type II DM/hyperglycemia
Diet controlled before admission
Accu-Cheks, sliding scale coverage, ISS to higher dose with blood sugar goal 140-180 mg per DL
Blood sugars 202- 341, HbA1c 7.2
Lantus added 15�15
Diabetic education
#Acute respiratory failure with hypoxemia on supplemental oxygen
Resolved, patient weaned off of supplemental oxygen, now on room air at SpO2 96%
�Venous blood gas at noon
# Bicarb drip added yesterday and discontinued today
# Mild transaminitis resolving
Trend LFTs
# DVT prophylaxis HSQ
#Pantoprazole IV discontinued
Subjective Dataa
Subjective Data
Date of Service:
Date of Service: August 19, 2023
Subjective:
Patient states she feels better today, although she mentioned her sleep was disturbed last night, had stiffness and pain in the neck relieved with Tylenol.
No chest pain, shortness of breath, palpitations. Patient has mild abdominal discomfort but no pain. She is breathing comfortably at room air.
Review of Systems
Genitourinary: Zhu
Objective Data
Data Reviewed
Vital Signs / I&O / Oxygen:
Vital Signs
Temp Pulse Resp BP Pulse Ox
97.4 F 81 18 87/75 96
08/19/23 11:24 08/19/23 09:31 08/19/23 09:31 08/19/23 09:31 08/19/23 09:40
Intake and Output
08/18/23 08/19/23 08/20/23
06:59 06:59 06:59
Intake Total 5302.5 / 5385.0 487.5 / 487.5
Output Total 1550 / 1550
Balance 3752.5 / 3835.0 487.5 / 487.5
SaO2 96
Nasal Cannula flow liters per 2
minute
Physical Exam
General: Comfortable
HEENT: Normocephalic and Anicteric
Cardiovascular: S1-S2 and Regular Rhythm
Respiratory: Clear
GI: Soft and Non Distended
Neurology: Awake, Alert, Oriented and AO x 3
Skin: Warm and Dry
Labs/Micro/Reports
Lab Data
08/19/23 03:36
08/19/23 03:36
Laboratory Results
08/19/23
03:36
PT 17.5 H
INR 1.45
APTT 40.6 H
Microbiology
08/18/23 15:06 Urine Urine Culture - Preliminary
08/18/23 09:04 Urine Urine Culture - Preliminary
Escherichia coli
08/18/23 08:52 Blood/Venous Blood Culture - Preliminary
Escherichia coli
08/18/23 08:52 Blood/Venous Gram Stain - Final
08/18/23 08:14 Blood/Venous Blood Culture - Preliminary
Escherichia coli
08/18/23 08:14 Blood/Venous Gram Stain - Final
08/18/23 08:14 Nasal Swab Influenza Types A & B (NORM) - Final
Negative for Influenza A & B, NAAT
Negative results must be combined with clinical observations
and patient history.
Nucleic Acid Amplification test (NAAT)performed on the
[employer] platform.
--- NOTE | 2023-08-19 15:42 | PTCARENOTE ---
Pt.'s levo @ 2mcg/kg/min; sat @ side of bed; denied dizziness/lightheadedness. Assisted into BR; performed self hygiene care and then stand by assisted to chair. Remained OOB x6H, assisted back to bed. Tolerating meals. Bicarb gtt off per orders-
see JUL. Call mcgregor remains w in reach.
[2023-08-19 17:31] LABS: Glucose - Point of Care 224 mg/dl (70-99)
--- NOTE | 2023-08-19 20:20 | PTCARENOTE ---
Received pt resting comfortably in bed. Pt AAOx3 Lungs clear Zhu in place draining yellow/joni colored urine w/ sediment. Zhu care provided. + pulses. Levo gtt infusing. Titrating per order
[2023-08-19 21:27] LABS: Glucose - Point of Care 290 mg/dl (70-99)
--- NOTE | 2023-08-19 22:18 | PTCARENOTE ---
Pt has a bradycardiac episode - Was sustaining in the 40s and briefly dropped to the high 30s. Pt was awake and talking to RN. Asymptomatic. HR back to 50s-60s at this time.
[2023-08-20] VITALS (12 sets, daily range): BP systolic 111–139; BP diastolic 66–85; BMI 33.0
--- NOTE | 2023-08-20 00:50 | PTCARENOTE ---
Pt alert oriented denies pain,self positioning,VS stable SR,no resp distress,O2 sats 96%,room air.Physical assessment preformed,jerez intact urine is clear yellow.Levophed maintained at 1 mcg at this time,MAP,88.Close observation ongoing throughout
the night.
[2023-08-20] MEDS: ZOSYN 50 IV ×4 (04:13→21:00)
--- NOTE | 2023-08-20 04:23 | DOWNTIME ---
There was a [employer] Drawer In Downtime on 08/20/2023 from 0100 to 08/20/2023 at 0322. Downtime documentation of patient's care, including medication administrations, has been reconciled in the electronic record per guidelines. Refer to the
patient's paper chart under the miscellaneous tab to see printed paper medication records and downtime forms.
[2023-08-20 04:51] LABS: Hematocrit 28.6 % (37.0-47.0); Mean Corpuscular Hgb 30.2 pg (27.0-31.0); Mean Corpuscular Volume 86.4 fL (81.0-99.0); Mean Platelet Volume 10.8 fL (7.4-10.4); Platelet Count 200 10^3/uL (130-400); Red Blood Cell Count 3.31 10^6/uL (4.20-5.40); Red Cell Dist. Width 14.9 % (11.5-14.5); White Blood Cell Count 25.4 10^3/uL (4.8-10.8)
[2023-08-20 05:45] LABS: ALT (SGPT) 48 U/L (0-35); AST (SGOT) 39 U/L (14-36); Albumin 2.7 g/dl (3.5-5.0); Alkaline Phosphatase 150 U/L (38-126); Blood Urea Nitrogen 36 mg/dl (7-17); Calcium 9.8 mg/dl (8.4-10.2); Carbon Dioxide 20 mmol/L (22-30); Chloride 108 mmol/L (98-107); Estimated Creatinine Clearance 61 ml/min; Glucose 173 mg/dl (70-99); Magnesium 2.5 mg/dl (1.6-2.3); Phosphorus 2.7 mg/dl (2.5-4.5); Potassium 3.9 mmol/L (3.5-5.1); Sodium 135 mmol/L (135-145); Total Bilirubin 1.2 mg/dl (0.2-1.3); Total Protein 5.2 g/dl (6.3-8.2); eGFR 53.79
[2023-08-20] MEDS: NICODERM TRANSDERMAL 7 MG TRANSDERM (08:18)
[2023-08-20] MEDS: LANTUS 0.149999999999999994 UNITS SC (08:19)
[2023-08-20] MEDS: HEPARIN 5000 UNITS SC ×3 (08:19→23:02)
[2023-08-20 08:27] LABS: Glucose - Point of Care 156 mg/dl (70-99)
--- NOTE | 2023-08-20 08:30 | PTCARENOTE ---
Received pt @ change of shift. AAOx3, denies pain. SR on monitor. SpO2 96% on RA. +BS, abd round/obese. Tolerating diet. Zhu w joni/sediment urine. Stand by assisted into BR; performed self hygiene care. Levo gtt off overnight; remains off.
Call meche king in reach.
[2023-08-20] MEDS: NOVOLOG FLEXPEN-HIGH RESISTANCE 2 UNITS SC ×3 (08:53→17:26)
--- NOTE | 2023-08-20 09:12 | W.PN.URO.CBU ---
Today's Communication / Plan
-
per hospitalst
Assessment / Plan
-
rt 8 mm stone prox ureter wih sepsis now stented plan per hosptial;ist but eventual outpatient stone / laser tx once recovered to home
Diagnosis
-
Date of Service: August 20, 2023
-
Patient Diagnosis:
Post Op Day:
Patient Diagnosis:
Post Op Day:
Patient Diagnosisbacteremis due to obstructing stonme now stented
Post Op Day:
Subjective
-
feels baseline
Objective
-
Vital Signs
Temp Pulse Resp BP Pulse Ox
97.9 F 67 16 129/76 96
08/20/23 07:26 08/20/23 09:00 08/20/23 09:00 08/20/23 07:00 08/20/23 09:09
Intake and Output
08/19/23 08/20/23 08/21/23
06:59 06:59 06:59
Intake Total 5302.5 / 5385.0 811.5 / 811.5
Output Total 1550 / 1550 1375 / 1375
Balance 3752.5 / 3835.0 -563.5 / -563.5
Intake:
Oral fluids 480 / 480
IV fluids (Total) 4722.5 / 4805.0 811.5 / 811.5
Levo 22.5 / 30.0 86.5 / 86.5
NSS 4425 / 4425
Normosol 50 / 50
Ofirmev 100 / 100
Sterile Water For Injection 75 / 150 675 / 675
1000 ml 1,000 ml @ 75 mls/hr IV
.[id number] HOLLY with Sodium
Bicarbonate 150 Meq Rx#:
[id number]
Zosyn 50 / 50 50 / 50
IV piggybacks 100 / 100
Output:
Urine, Zhu 1550 / 1550 1375 / 1375
Laboratory Results
08/20/23 04:11
08/20/23 04:11
Review of Systems
-
: No Symptoms
Physical Exam
-
General - well developed, well nourished, no acute distress
Chest - clear bilaterally
Abdomen - soft, non-tender, positive bowel sounds, no CVAT, no incisional pain or distention
Genitalia - normal
Rectal - normal
Skin - warm & dry with no rash
Neuro - AOx3, no motor deficits
Extremities - no clubbing, no cyanosis, no edema
Incision - clean, dry
Dressing - clean, dry, intact
Care Review
Data Reviewed
Discussed with: Hospitalist and Nursing
--- NOTE | 2023-08-20 10:15 | PTCARENOTE ---
Zhu catheter removed per orders. Pt. assisted OOB into chair, tolerating position. Call mcgregor remains w in reach.
--- NOTE | 2023-08-20 10:18 | W.PN.HOSP.TC ---
Today's Communication/Plan
-
transfer to med/surg
follow cultures
d/c planning
Assessment / Plan
Assessment / Plan
Patient is a 53-year-old female
E. coli Septic shock--(POA)--requiring pressors after 3 L of sepsis fluid resuscitation, off pressors--due to obstructing renal stone-- blood and urine culture with E. coli-- repeat until clear--cont zosyn (pharmacy to dose as renal function
improved)-- apprec urology input, stent placed, stone pushed out of the way, pus noted
Acute kidney injury--likely due to obstructing renal stone/sepsis--continue IV fluids--improving
Hypokalemia--replete
Type 2 diabetes mellitus diet controlled--increase Accu-Cheks with sliding scale coverage--would like to start metformin but creat still a bit elevated--hope to start tomorrow 08/19--HGB A1C 7.2--consult [facility] [employer]-DM
Essential hypertension-no medications--now hypotensive on pressors--wean pressors to off as able--would prefer to hold on midodrine (BP should improve with treatment of sepsis)
DVT prophylaxis
CODE STATUS--full code
Anticipated Discharge: 24 - 48 hours
Subjective/Interval History
-
Date of Service: August 20, 2023
pt wants to go home
explained why not
Objective Data
-
Labs:
Laboratory Results
08/20/23
04:11
WBC 25.4 H
Hgb 10.0 L
Hct 28.6 L
Plt Count 200 D
Sodium 135
Potassium 3.9
Chloride 108 H
Carbon Dioxide 20 L
BUN 36 H
Creatinine 1.2 H
Glucose 173 H
Calcium 9.8
Total Bilirubin 1.2
AST 39 H
ALT 48 H
Alkaline Phosphatase 150 H
Vital Signs:
max temp for 24 hours
08/19/23
23:35
Temp 98.6 F
Vital Signs
Temp Pulse Resp BP Pulse Ox
97.9 F 67 16 129/76 96
08/20/23 07:26 08/20/23 09:00 08/20/23 09:00 08/20/23 07:00 08/20/23 09:09
I&O
08/19/23 08/20/23 08/21/23
06:59 06:59 06:59
Intake Total 5302.5 / 5385.0 811.5 / 811.5
Output Total 1550 / 1550 1375 / 1375
Balance 3752.5 / 3835.0 -563.5 / -563.5
Review of Systems
-
All other systems: Reviewed and negative
Physical Exam
-
General: Well Developed, Well Nourished and No Apparent Distress
HEENT: Normocephalic and Atraumatic
Respiratory: Clear to Auscultation; Negative Wheezes or Rhonchi
Cardiac: Regular Rhythm and S1/S2; Negative Murmur
GI: Soft, Nontender, Nondistended and Normal Bowel Sounds
Musculoskeletal: No Clubbing, No Cyanosis and No Edema
Neuro: Awake
Psych: Calm
--- NOTE | 2023-08-20 10:54 | PN.DE.MGMTRT ---
Insulin Management
- -
08/20/2023 Diabetes Management Consult
Patient admitted 08/17 with weakness, septic shock, acute kidney injury, R kidney stone. PMH diet controlled diabetes, kidney stones, HTN. A1C on admission 7.2%, cr today 1.2, eGFR 53.79.
I spoke with patient who is awake, alert and oriented. She states she had gestational diabetes 17 and 21 years ago and 4 years ago was started on glucophage for pre diabetes. She took it for 3 months and never refilled the prescription. She
tolerated it well.
Glucose has been 191 to 341. Lantus 15 units in AM started with high resistance corrective insulin. Will continue additional day and consider starting metformin 850 BID. I discussed with patient she may need insulin for brief period of time but
should be able to manage on oral medication.
Patient will need glucose monitor and instruction.
Diabetes History
- -
Type of Diabetes: 2
Pre-Admission Diabetes Regimen
08/20/23
04:11
Creatinine 1.2 H
Lab Results
Hemoglobin A1c 7.2 % (4.0-5.6) H 08/19/23 03:36
Insulin Pump Settings
IP Diabetes Regimen
08/19/23 08/19/23 08/19/23
12:14 13:07 17:20
Glucose
POC Glucose 208 H 215 H 224 H
08/19/23 08/20/23 08/20/23
21:15 04:11 08:16
Glucose 173 H
POC Glucose 290 H 156 H
Meal type: Lunch
Amount consumed: 75%
Patient Education
[2023-08-20 13:37] LABS: Glucose - Point of Care 179 mg/dl (70-99)
--- NOTE | 2023-08-20 14:23 | CM ---
Patient seen at bedside with physician. Patient stated that she is eager to go home and that she does not anticipate any needs at discharge. Patient eager to follow up with outpatient classes on DM. CM will continue to follow for discharge planning
needs.
Plan; home with VN vs home with no needs and outpatient follow up
--- NOTE | 2023-08-20 16:02 | PTCARENOTE ---
pt. transported via wheelchair w volunteer to rm 401, bed 02 w belongings. Report give to 4E RN. No further needs from this RN.
--- NOTE | 2023-08-20 16:15 | PTCARENOTE ---
Received pt from ICU.Pt awake, alert and oriented x3. Pt VSS 96% on RA. Assessment unchanged, oriented to room, call mcgergor within reach, plan of care ongoing.
[2023-08-20 16:38] LABS: Glucose - Point of Care 175 mg/dl (70-99)
[2023-08-20 21:37] LABS: Glucose - Point of Care 185 mg/dl (70-99)
[2023-08-21] MEDS: ZOSYN 50 IV ×2 (03:52→09:58)
[2023-08-21 06:00] VITALS: BMI 32.8
[2023-08-21 06:18] LABS: Hemoglobin 10.6 g/dL (12.0-16.0); Mean Corp Hgb Conc. 35.3 g/dL (33.0-37.0); Mean Corpuscular Hgb 30.5 pg (27.0-31.0); Mean Corpuscular Volume 86.5 fL (81.0-99.0); Platelet Count 243 10^3/uL (130-400); Red Blood Cell Count 3.47 10^6/uL (4.20-5.40); Red Cell Dist. Width 14.9 % (11.5-14.5); White Blood Cell Count 16.5 10^3/uL (4.8-10.8)
[2023-08-21 06:37] LABS: ALT (SGPT) 63 U/L (0-35); AST (SGOT) 59 U/L (14-36); Albumin 2.7 g/dl (3.5-5.0); Alkaline Phosphatase 196 U/L (38-126); Blood Urea Nitrogen 39 mg/dl (7-17); Carbon Dioxide 19 mmol/L (22-30); Chloride 111 mmol/L (98-107); Estimated Creatinine Clearance 67 ml/min; Glucose 119 mg/dl (70-99); Magnesium 2.1 mg/dl (1.6-2.3); Potassium 3.8 mmol/L (3.5-5.1); Sodium 135 mmol/L (135-145); Total Protein 5.3 g/dl (6.3-8.2); eGFR 59.71
--- NOTE | 2023-08-21 06:49 | W.PN.URO.CBU ---
Today's Communication / Plan
-
home when ok with hospitalist
Assessment / Plan
-
rt 8 mm stone prox ureter wih sepsis now stented plan per hosptial;ist but eventual outpatient stone / laser tx once recovered to home
Diagnosis
-
Date of Service: August 21, 2023
-
Patient Diagnosis:
Post Op Day:
Patient Diagnosis:
Post Op Day:
Patient Diagnosis:
Post Op Day:
Patient Diagnosisbacteremis due to obstructing stonme now stented
Post Op Day:
Subjective
-
feeling baseline
Objective
-
Vital Signs
Temp Pulse Resp BP Pulse Ox
98.1 F 73 18 121/67 96
08/20/23 23:00 08/20/23 23:00 08/20/23 23:00 08/20/23 23:00 08/21/23 01:27
Intake and Output
08/19/23 08/20/23 08/21/23
06:59 06:59 06:59
Intake Total 5302.5 / 5385.0 811.5 / 811.5 1588 / 1588
Output Total 1550 / 1550 1375 / 1375 200 / 200
Balance 3752.5 / 3835.0 -563.5 / -563.5 1388 / 1388
Intake:
Oral fluids 480 / 480 1488 / 1488
IV fluids (Total) 4722.5 / 4805.0 811.5 / 811.5
Levo 22.5 / 30.0 86.5 / 86.5
NSS 4425 / 4425
Normosol 50 / 50
Ofirmev 100 / 100
Sterile Water For Injection 75 / 150 675 / 675
1000 ml 1,000 ml @ 75 mls/hr IV
.[id number] HOLLY with Sodium
Bicarbonate 150 Meq Rx#:
[id number]
Zosyn 50 / 50 50 / 50
IV piggybacks 100 / 100 100 / 100
Output:
Urine, Zhu 1550 / 1550 1375 / 1375
Urine, Voided 200 / 200
Other:
Number of approximated MODERATE 2
amounts of urine
Laboratory Results
08/21/23 05:02
08/21/23 05:02
Review of Systems
-
: No Symptoms
Physical Exam
-
General - well developed, well nourished, no acute distress
Chest - clear bilaterally
Abdomen - soft, non-tender, positive bowel sounds, no CVAT, no incisional pain or distention
Genitalia - normal
Rectal - normal
Skin - warm & dry with no rash
Neuro - AOx3, no motor deficits
Extremities - no clubbing, no cyanosis, no edema
Incision - clean, dry
Dressing - clean, dry, intact
Counseling
-
per hospitalist
Care Review
Data Reviewed
Discussed with: Nursing
[2023-08-21 07:00] VITALS: BP 118/73
[2023-08-21 08:20] LABS: Glucose - Point of Care 130 mg/dl (70-99)
[2023-08-21] MEDS: NOVOLOG FLEXPEN-HIGH RESISTANCE SC ×2 (08:27→12:33)
[2023-08-21] MEDS: NICODERM TRANSDERMAL 7 MG TRANSDERM (08:28)
[2023-08-21] MEDS: LANTUS 0.149999999999999994 UNITS SC (08:30)
[2023-08-21] MEDS: HEPARIN 5000 UNITS SC (08:31)
[2023-08-21] MEDS: THERAGRAN 1 TABLET PO (08:31)
--- NOTE | 2023-08-21 10:55 | PN.DE.MGMTRT ---
Insulin Management
- -
08/21/2023 Diabetes Management Follow up
Patient admitted 08/17 with weakness, septic shock, acute kidney injury, R kidney stone. PMH diet controlled diabetes, kidney stones, HTN. A1C on admission 7.2%, cr today 1.2, eGFR 53.79.
I spoke with patient who is awake, alert and oriented. She states she had gestational diabetes 17 and 21 years ago and 4 years ago was started on glucophage for pre diabetes. She took it for 3 months and never refilled the prescription. She
tolerated it well.
Glucose has been 173 to 185. Continues with Lantus 15 units in AM with high resistance corrective insulin. Will start metformin 500 BID. I discussed with patient she may need insulin for brief period of time but should be able to manage on oral
medication.
Provided glucose monitor and instructed with good return demonstration. To test glucose in pattern provided in diabetes booklet. Patient states she has tested glucose before with gestational diabetes. Reviewed steps for insulin pen prep and
injection technique. Patient verbalized understanding. To report to primary doctor on Friday with glucose results.
Diabetes History
- -
Type of Diabetes: 2
Pre-Admission Diabetes Regimen
08/21/23
05:02
Creatinine 1.1 H
Lab Results
Hemoglobin A1c 7.2 % (4.0-5.6) H 08/19/23 03:36
Insulin Pump Settings
IP Diabetes Regimen
08/20/23 08/20/23 08/20/23
13:26 16:37 21:36
Glucose
POC Glucose 179 H 175 H 185 H
08/21/23 08/21/23
05:02 08:08
Glucose 119 H
POC Glucose 130 H
Meal type: Breakfast
Meal type: Dinner
Meal type: Lunch
Meal type: Breakfast
Amount consumed: 100%
Amount consumed: 100%
Amount consumed: 100%
Amount consumed: 100%
Patient Education
[2023-08-21 12:13] LABS: Glucose - Point of Care 131 mg/dl (70-99)
--- NOTE | 2023-08-21 15:08 | W.PN.HOSP.TC ---
Today's Communication/Plan
-
d/c
Assessment / Plan
Assessment / Plan
Patient is a 53-year-old female
E. coli Septic shock--(POA)--requiring pressors after 3 L of sepsis fluid resuscitation, off pressors--due to obstructing renal stone-- blood and urine culture with E. coli-- repeat clear--change zosyn to keflex at d/c
Acute kidney injury--likely due to obstructing renal stone/sepsis--continue IV fluids--improved
Hypokalemia--replete
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
Essential hypertension-no medications
DVT prophylaxis
CODE STATUS--full code
Anticipated Discharge: Today
Subjective/Interval History
-
Date of Service: August 21, 2023
pt feeling well
Objective Data
-
Labs:
Laboratory Results
08/21/23
05:02
WBC 16.5 H
Hgb 10.6 L
Hct 30.0 L
Plt Count 243 D
Sodium 135
Potassium 3.8
Chloride 111 H
Carbon Dioxide 19 L
BUN 39 H
Creatinine 1.1 H
Glucose 119 H
Calcium 10.0
Total Bilirubin 1.0
AST 59 H
ALT 63 H
Alkaline Phosphatase 196 H
Vital Signs:
max temp for 24 hours
08/20/23
15:02
Temp 98.5 F
Vital Signs
Temp Pulse Resp BP Pulse Ox
98.1 F 70 18 118/73 98
08/21/23 07:00 08/21/23 07:00 08/21/23 07:00 08/21/23 07:00 08/21/23 12:03
I&O
08/20/23 08/21/23 08/22/23
06:59 06:59 06:59
Intake Total 811.5 / 811.5 1588 / 1588
Output Total 1375 / 1375 200 / 200
Balance -563.5 / -563.5 1388 / 1388
Review of Systems
-
All other systems: Reviewed and negative
Physical Exam
-
General: Well Developed, Well Nourished and No Apparent Distress
HEENT: Normocephalic and Atraumatic
Respiratory: Clear to Auscultation; Negative Wheezes or Rhonchi
Cardiac: Regular Rhythm and S1/S2; Negative Murmur
GI: Soft, Nontender, Nondistended and Normal Bowel Sounds
Musculoskeletal: No Clubbing, No Cyanosis and No Edema
Neuro: Awake
Psych: Calm
[2023-08-21 15:58] VITALS: BP 97/61
[2023-08-21 16:03] VITALS: BP 97/61
--- NOTE | 2023-08-21 17:51 | W.DCSUMMARY ---
Discharge Summary
Discharge Data
Date of Admission: 08/18/23
Date of Discharge: 08/21/23
-
Pending Results: No
Hospital Course
Primary care physician : Eugene Molina
Principal Discharge diagnosis : Escherichia coli septic shock due to obstructing renal stone, acute kidney injury, hypokalemia, type 2 diabetes mellitus
Chronic Discharge diagnosis : Essential hypertension
Hospital Course : Patient was a 53-year-old female who had a history of kidney stones in the past. On the of the week prior to admission she developed right-sided abdominal pain which lasted all weekend. She thought that she had a kidney
stone but was unable to pass it on her own. She admitted to chills and rigors along with sweats but did not take her temperature. Upon arrival to the emergency department she was found to have a temperature of 102.7. She complained of
lightheadedness, dizziness, nausea, dry heaves and having no appetite. She denied any dysuria or urinary symptoms. Workup finds her to have an obstructing renal stone with relative hypotension and the patient was admitted to the intensive care
unit.
Problem #1: Escherichia coli septic shock due to obstructing renal stone. Patient was admitted to the intensive care unit. She was taken to the operating room and a stent was placed. She was seen in consultation by urology to do so. She was
volume resuscitated with 3 L of normal saline due to sepsis fluid bolus resuscitation. Blood and urine cultures both showed Escherichia coli. She was started on Zosyn. Initial white count was 2.3 which bumped to a high of 25.4. She is down to
16.5 today. Repeat cultures are negative. She feels markedly improved. She will need to have definitive surgery for her large renal stone in the near future. She will complete a total of 14 days of antibiotics.
Problem #2: Acute kidney injury. This was due to both a combination of sepsis and obstructing stone. Renal function improved with IV fluids.
Problem #3: Hypokalemia. This was followed and repleted as needed.
Problem #4: Type 2 diabetes mellitus. Patient had diet-controlled diabetes as an outpatient and was not on any medications. Because of the infection, sugars did increase. Hemoglobin A1c was checked and was 7.2. She was seen in consultation by
the diabetic nurse practitioner as she was placed on insulin by the commercial floor covering installer prior to discharge. She will be discharged home on the insulin but metformin will be started as well. This is in hopes that the patient will be able to come off
insulin in the near future.
Problem #5: Essential hypertension. Patient also was not on any medications. She had hypotension requiring pressor support. She was not discharged on any blood pressure medications.
Patient is stable for discharge home at this time. If there are any questions regarding this dictation or her hospital stay, please not hesitate to call. Our office number is [phone].
Important imaging findings :
CT SCAN ABDOMEN/PELVIS IMPRESSION:
1. 8 mm stone at the right ureteropelvic junction, associated with mild hydronephrosis of the right kidney.
2. Large number of small intrarenal stones are seen within the intrarenal collecting system of each kidney as detailed above, nonobstructing.
3. 2.7 cm left adrenal lesion, unchanged compared to prior study, likely representing a benign adenoma.
4. Diffuse fatty infiltration of the liver, with mild hepatomegaly.
5. Bilateral pars defects at L5.
Discharge Plan
-
Patient Disposition: Home with Home Care
Discharge Diagnosis/Procedures: Escherichia coli septic shock from obstructing renal stone, acute kidney injury resolved, hypokalemia, type 2 diabetes mellitus not requiring treatment, essential hypertension
Condition: Good
Diet: Diabetic, Carb Controlled
Activity: As tolerated
Driving Restrictions: As prior to admission
Bathing Restrictions: None
Other Services: VN
Referrals:
Pranav Aguirre MD [Active] - (you have a stent expoect blood i urine frequency urgency call if questions or fever chills but call upon arrival at home to schedule next phase treatment [id number] ex 5 for laser removal stone and
replace stent )
Molina,Eugene, MD [Family Provider] - in less than 1 week
Prescriptions:
New
metformin 500 mg Tablet
500 mg PO BID@0800,1700 Qty: 60 0RF
(DME) Contour Next Test Strips Strip
Qty: 200 0RF
Rx Instructions:
As Directed E11
(DME) pen needle, diabetic [BD Ultra-Fine Dian Pen Needle] 32 gauge x 5/32' Needle
Qty: 100 0RF
Rx Instructions:
E11.65 As Directed
(DME) lancets [Color Lancets] 21 gauge Misc
Qty: 200 0RF
Rx Instructions:
E11 As Directed
insulin glargine-yfgn [Semglee(insulin glarg-yfgn)Pen] 100 unit/mL (3 mL) Insulin Pen
15 unit SC DAILY Qty: 5 0RF
Rx Instructions:
E11
acetaminophen 325 mg Tablet
650 mg PO Q6HPRN PRN (Reason: mild pain/ fever>100.5F) Qty: 0 0RF
cephalexin 500 mg capsule
500 mg PO TID Qty: 33 0RF
Continued
therapeutic multivitamin Tablet
1 tab PO DAILY
Discontinued
naproxen sodium [Aleve] 220 mg Tablet
440 mg PO [id number] PRN (Reason: mild pain)
hydrocodone-acetaminophen 5-300 mg Tablet
1 tab PO BID PRN (Reason: severe pain)
Discharge Orders:
Discharge Patient (As Directed); Ordered 08/21/23
Ordered By: Camille Romero
Discharge Date and Time
Discharge Date/Time: 08/21/23 16:06
Print Language: YORUBA
== END 2023-08-21 16:06 | disposition home or self-care (01) | DRG 853 ==
LOC: 4 EAST ACU 11:17
PROVIDERS: Nurse Practitioner Primary Care; Physician Assistant; ADMITTING PHYSICIAN Internal Medicine; CONSULT PHYSICIAN Internal Medicine Critical Care Medicine; CONSULT PHYSICIAN Specialist; EMERGENCY PHYSICIAN Emergency Medicine; FAMILY PHYSICIAN Family Medicine
PROC: BT1D1ZZ Fluoroscopy of Right Kidney, Ureter and Bladder using Low Osmolar Contrast (ICD-10-PCS; 2023-08-18)
PROC: 0T768DZ Dilation of Right Ureter with Intraluminal Device, Via Natural or Artificial Opening Endoscopic (ICD-10-PCS; 2023-08-18)
DX: A41.51 Sepsis due to Escherichia coli [E. coli] (principal); J96.01 Acute respiratory failure with hypoxia; R65.21 Severe sepsis with septic shock; N13.6 Pyonephrosis; N17.9 Acute kidney failure, unspecified; E87.1 Hypo-osmolality and hyponatremia; E87.20 Acidosis, unspecified; E86.0 Dehydration; E11.65 Type 2 diabetes mellitus with hyperglycemia; F17.200 Nicotine dependence, unspecified, uncomplicated; R74.01 Elevation of levels of liver transaminase levels; K76.0 Fatty (change of) liver, not elsewhere classified; R16.0 Hepatomegaly, not elsewhere classified; I10 Essential (primary) hypertension; E87.6 Hypokalemia; D72.819 Decreased white blood cell count, unspecified; Z87.442 Personal history of urinary calculi; Z11.52 Encounter for screening for COVID-19
CPT/HCPCS: 51701; 74018; 74176; 76000; 80053; 81003; 81015; 82805; 82962; 83036; 83605; 83690; 83735; 84100; 85025; 85027; 85610; 85730; 87040; 87077; 87086; 87149; 87186; 87205; 87502; 87811; 93005; 96361; 96365; 96375; 99291; A4300; C2617

== ENCOUNTER → 2023-09-18 06:08 | Day surgery (SDC) | payer OTHER, SELFPAY ==
--- NOTE | 2023-09-12 11:03 | PTCARENOTE ---
INR 1.45 collected on 08/19/23; Frannie at 's office was notified.
[2023-09-18] VITALS (8 sets, daily range): BP systolic 114–154; BP diastolic 62–86; BMI 31.6
[2023-09-18 07:40] LABS: Glucose - Point of Care 156 mg/dl (70-99)
[2023-09-18] MEDS: NORMOSOL-R 1000 IV (07:47)
[2023-09-18 09:23] LABS: Glucose - Point of Care 170 mg/dl (70-99)
[2023-09-23 11:16] LABS: Stone Analysis Mass 32 mg
== END ==
LOC: SDS 06:08
PROVIDERS: ATTENDING PHYSICIAN Specialist
DX: N20.0 Calculus of kidney (principal)
CPT/HCPCS: 52356; 74018; 76000; 82365; 82962; 87077; 87086; 87186; C1894; C2617; J1580

== ENCOUNTER 2023-11-09 17:09 | Inpatient (IN) | payer OTHER, SELFPAY ==
[2023-11-09] VITALS (20 sets, daily range): BP systolic 82–151; BP diastolic 46–72
--- NOTE | 2023-11-09 12:53 | ED.GENMED ---
History of Present Illness
<Alis Cannon PA-C - Last Filed: 11/09/23 19:19>
General
Chief Complaint: Flank Pain
Source: patient
Exam Limitations: none
Time Seen by Provider: 11/09/23 12:31
Nursing documentation reviewed up to this point in time: agreed with
Travel History
Have you had any contact with someone who has COVID-19?: No
Do you have any symptoms of coronavirus? Fever > 100 degrees, chills, cough, shortness of breath, sore throat, loss of taste or smell, muscle aches, or headache?: Yes
Symptoms:: chills
History of Present Illness
History of Present Illness:
Patient is a 53-year-old female with history urosepsis, kidney stones, diabetes presenting to the emergency department for evaluation of left flank pain. Patient initially noticed pain yesterday in her left lower back/flank. She states pain
persisted she became increasingly fatigued and nauseous. Patient states she has very little appetite and slept for 12 hours last night. Patient reports chills and a fever up to 101.1 this morning at home. Patient denies any chest pain, shortness
of breath, or vomiting.
Patient states symptoms feel similar to last time she had urosepsis a few months ago from an obstructing kidney stone. She came to the emergency department for further evaluation.
Patient did have a stent removed at the end of August. She follows with Dr. Aguirre.
Past History
<Alis Cannon PA-C - Last Filed: 11/09/23 19:19>
Past History
ED Past Medical History: NIDDM and Other (broken left wrist in the past, kidney stones)
ED Past Surgical History: Appendectomy, (x2) and Urological
Patient has exhibited threatening behavior?: No
Social History
Tobacco: Smoker
Alcohol: None
Personal:
Living: with family
Employment: Employed
Family History
Family History: Unable to obtain
Review of Systems
<Alis Cannon PA-C - Last Filed: 11/09/23 19:19>
Review of Systems
Allergies reviewed?: Yes
All Other Systems: ROS reviewed and negative except as documented in HPI and ROS
Phy Exam
<Alis Cannon PA-C - Last Filed: 11/09/23 19:19>
Physical Exam
Physical Exam:
Vitals: Tachycardic, otherwise vital signs stable. Afebrile
General: Patient is well appearing, no acute distress. Nontoxic-appearing
Skin: Warm and dry, no rashes or lesions
Head: Normocephalic, atraumatic
Eyes: Sclera nonicteric. EOMs intact. No nystagmus.
Throat: Protecting airway
Neck: Normal ROM, no cervical spine tenderness, no meningismus. Trachea midline
Cardiac: Regular rate and rhythm, no murmurs.
Pulm: Normal respiratory effort, no wheezes, rales, rhonchi heard on exam.
Abdomen: Abdomen soft. No abdominal tenderness. Some tenderness noted around left flank. Mild left CVA tenderness
Extremities: No evidence of cyanosis or edema. Good distal pulses. Perfusing well
Neuro: AAOx3. CN II-XII intact. No focal neurologic deficits.
Psychiatric: Normal affect.
Course
<Alis Cannon PA-C - Last Filed: 11/09/23 19:19>
Orders/Labs/Results
Orders:
Orders
11/09/23 12:48
0.9% Sodium Chloride 1000 ml [Nss] 1,000 ml IV BOLUS
Ketorolac [Toradol] 15 mg IV NOW STA
Ondansetron Injectable [Zofran] 4 mg IV NOW STA
11/09/23 12:50
CT Abd/pel Without Iv Or Oral Urgent
Comment:
Reason For Exam: L flank pain, hx kidney stones and urosepsis
11/09/23 12:52
Complete Blood Count/With Diff Urgent
Comprehensive Metabolic Panel Urgent
Lactic Acid Urgent
Urinalysis Reflex To Culture Urgent
Date Specimen was Collected: 11/09/23
Time Specimen was Collected: 12:37
Urine Microscopic Reflex Cult Urgent
Blood Culture Urgent
ANEUDY Source: Blood/Venous
Specimen Description:
Urine Culture Urgent
ANEUDY Source: U
Specimen Description:
Date Specimen was Collected: 11/09/23
Time Specimen was Collected: 12:37
11/09/23 13:39
0.9% Sodium Chloride 1000 ml [Nss] 1,000 ml IV BOLUS
CefTRIAXone [Rocephin] 1,000 mg IV NOW STA
11/09/23 15:00
0.9% Sodium Chloride 1000 ml [Nss] 2,700 ml IV NOW STA
11/09/23 15:07
0.9% Sodium Chloride 1000 ml [Nss] 1,000 ml IV BOLUS
11/09/23 15:55
Dexamethasone Sod Phosphate [Decadron] 20 mg .ROUTE .STK-MED ONE
Fentanyl Citrate/Pf [Sublimaze] 100 mcg .ROUTE .STK-MED ONE
Midazolam HCl [Versed] 2 mg .ROUTE .STK-MED ONE
Ondansetron Injectable [Zofran] 4 mg .ROUTE .STK-MED ONE
Propofol [Diprivan] 20 ml .ROUTE .STK-MED
11/09/23 16:57
Admit/Transfer Patient As Directed
Co-Sign Provider:
Level of Care: Inpatient admission
Assign to:: Medical/Surgical
Physician / Group: Hospitalist
Diagnosis: Infected kidney stone
Reason for Hospitalization: Infected kidney stone
Expected length of stay greater than two midnights?: Yes
ELOS- Estimated Length of Stay in days: 3
I certify the patient meets the requirements for IP care: Yes
11/09/23 17:00
Code Status As Directed
Resuscitation Status: Full Code
Abnormal Lab Results
11/09/23
12:52
WBC 19.8 H 10^3/uL
(4.8-10.8)
Abs Immat Gran (auto) 0.1 H 10^3/uL
(0-0.05)
Absolute Neuts (auto) 17.3 H 10^3/uL
(1.4-6.5)
Absolute Lymphs (auto) 0.8 L 10^3/uL
(1.2-3.4)
Absolute Monos (auto) 1.5 H 10^3/uL
(0.1-0.6)
Neutrophils % 87.4 H %
(42.2-75.2)
Lymphocytes % 4.2 L %
(20.5-51.1)
Sodium 133 L mmol/L
(135-145)
Carbon Dioxide 20 L mmol/L
(22-30)
BUN 21 H mg/dl
(7-17)
Creatinine 1.7 H mg/dL
(0.6-1.0)
Glucose 186 H mg/dl
(70-99)
Calcium 10.7 H mg/dl
(8.4-10.2)
AST 44 H U/L
(14-36)
ALT 45 H U/L
(0-35)
Urine Ketones Trace A
(Negative)
Ur Occult Blood Reflex 3+ A
(Negative)
Urine Nitrite (Reflex) Positive A
(Negative)
Leukocyte Esterase Rfl 2+ A
(Negative)
Urine WBC (Reflex) 50-60 A /HPF
(0-5)
Urine Bacteria (Reflex) Many A
(Negative)
11/09/23 12:52
11/09/23 12:52
Vital Signs
Initial and Last Documented VS:
Initial Vital Signs
Temp Pulse Resp BP Pulse Ox
99.7 F 116 16 151/72 95
11/09/23 12:26 11/09/23 12:26 11/09/23 12:26 11/09/23 12:26 11/09/23 12:26
Last Documented Vital Signs
Temp Pulse Resp BP Pulse Ox
99.7 F 117 36 125/58 93
11/09/23 12:26 11/09/23 17:30 11/09/23 17:30 11/09/23 17:30 11/09/23 17:30
<Freddy Kevin MD - Last Filed: 11/09/23 18:24>
Orders/Labs/Results
Orders:
Orders
11/09/23 12:48
0.9% Sodium Chloride 1000 ml [Nss] 1,000 ml IV BOLUS
Ketorolac [Toradol] 15 mg IV NOW STA
Ondansetron Injectable [Zofran] 4 mg IV NOW STA
11/09/23 12:50
CT Abd/pel Without Iv Or Oral Urgent
Comment:
Reason For Exam: L flank pain, hx kidney stones and urosepsis
11/09/23 12:52
Complete Blood Count/With Diff Urgent
Comprehensive Metabolic Panel Urgent
Lactic Acid Urgent
Urinalysis Reflex To Culture Urgent
Date Specimen was Collected: 11/09/23
Time Specimen was Collected: 12:37
Urine Microscopic Reflex Cult Urgent
Blood Culture Urgent
ANEUDY Source: Blood/Venous
Specimen Description:
Urine Culture Urgent
ANEUDY Source: U
Specimen Description:
Date Specimen was Collected: 11/09/23
Time Specimen was Collected: 12:37
11/09/23 13:39
0.9% Sodium Chloride 1000 ml [Nss] 1,000 ml IV BOLUS
CefTRIAXone [Rocephin] 1,000 mg IV NOW STA
11/09/23 15:00
0.9% Sodium Chloride 1000 ml [Nss] 2,700 ml IV NOW STA
11/09/23 15:07
0.9% Sodium Chloride 1000 ml [Nss] 1,000 ml IV BOLUS
11/09/23 15:55
Dexamethasone Sod Phosphate [Decadron] 20 mg .ROUTE .STK-MED ONE
Fentanyl Citrate/Pf [Sublimaze] 100 mcg .ROUTE .STK-MED ONE
Midazolam HCl [Versed] 2 mg .ROUTE .STK-MED ONE
Ondansetron Injectable [Zofran] 4 mg .ROUTE .STK-MED ONE
Propofol [Diprivan] 20 ml .ROUTE .STK-MED
11/09/23 16:57
Admit/Transfer Patient As Directed
Co-Sign Provider:
Level of Care: Inpatient admission
Assign to:: Medical/Surgical
Physician / Group: Hospitalist
Diagnosis: Infected kidney stone
Reason for Hospitalization: Infected kidney stone
Expected length of stay greater than two midnights?: Yes
ELOS- Estimated Length of Stay in days: 3
I certify the patient meets the requirements for IP care: Yes
11/09/23 17:00
Code Status As Directed
Resuscitation Status: Full Code
Abnormal Lab Results
11/09/23
12:52
WBC 19.8 H 10^3/uL
(4.8-10.8)
Abs Immat Gran (auto) 0.1 H 10^3/uL
(0-0.05)
Absolute Neuts (auto) 17.3 H 10^3/uL
(1.4-6.5)
Absolute Lymphs (auto) 0.8 L 10^3/uL
(1.2-3.4)
Absolute Monos (auto) 1.5 H 10^3/uL
(0.1-0.6)
Neutrophils % 87.4 H %
(42.2-75.2)
Lymphocytes % 4.2 L %
(20.5-51.1)
Sodium 133 L mmol/L
(135-145)
Carbon Dioxide 20 L mmol/L
(22-30)
BUN 21 H mg/dl
(7-17)
Creatinine 1.7 H mg/dL
(0.6-1.0)
Glucose 186 H mg/dl
(70-99)
Calcium 10.7 H mg/dl
(8.4-10.2)
AST 44 H U/L
(14-36)
ALT 45 H U/L
(0-35)
Urine Ketones Trace A
(Negative)
Ur Occult Blood Reflex 3+ A
(Negative)
Urine Nitrite (Reflex) Positive A
(Negative)
Leukocyte Esterase Rfl 2+ A
(Negative)
Urine WBC (Reflex) 50-60 A /HPF
(0-5)
Urine Bacteria (Reflex) Many A
(Negative)
11/09/23 12:52
11/09/23 12:52
Vital Signs
Initial and Last Documented VS:
Initial Vital Signs
Temp Pulse Resp BP Pulse Ox
99.7 F 116 16 151/72 95
11/09/23 12:26 11/09/23 12:26 11/09/23 12:26 11/09/23 12:26 11/09/23 12:26
Last Documented Vital Signs
Temp Pulse Resp BP Pulse Ox
99.7 F 117 36 125/58 93
11/09/23 12:26 11/09/23 17:30 11/09/23 17:30 11/09/23 17:30 11/09/23 17:30
<Alis Cannon PA-C - Last Filed: 11/09/23 19:19>
MDM/Problems Addressed
Differential Diagnosis Includes:
Not limited to: Kidney stone, urosepsis, pyelonephritis, UTI, lumbar strain, diverticulitis
MDM/Problems Addressed:
53-year-old female with history of kidney stones & urosepsis presenting for evaluation of left flank pain and significant fatigue over the past day. Patient states symptoms feel exactly similar to when she was septic from obstructing stone back in
July 2023. Endorses significant fatigue, loss of appetite, nausea, chills, fever to 101.1 at home. Patient tachycardic on arrival, otherwise vital signs stable. Physical exam as above. Patient is nontoxic-appearing, relatively well-appearing.
Does have mild left CVA tenderness and left flank pain. Patient is perfusing well. Concern for urosepsis given patient history and current symptoms, although she is nontoxic-appearing at this time will check basic labs, urinalysis. Will check
lactic. Blood cultures will be sent. Noncon CT of abdomen/pelvis ordered. Will give fluid bolus, Toradol for discomfort, Zofran. Will monitor very closely and reassess.
Labs reviewed. Leukocytosis of 19.8. Signs of mild dehydration and AUBREY with creatinine of 1.7 from baseline around 1. Urine positive for blood and appears infected. Will start empiric antibiotics with Rocephin now based on prior urine culture
growth of E. coli.. Will give 2 liters normal saline to achieve sepsis fluid bolus of 30 mL/kg. Blood pressures have been declining and are now soft in 90s over 60s. Patient remains very mildly tachycardic in the 100s. Fortunately�patient
remains well-appearing.
Discussed with urologist on-call�Dr. Barreto. Given soft BPs and concern for urosepsis�patient will be brought to the OR tonight for emergent stent. CT still pending.
CT does show 4 mm obstructing stone in left proximal ureter. Patient admitted to hospitalist. Urology has been consulted and saw patient at bedside. Patient brought to the OR for ureteral stent placement.
Chronic conditions affecting care:
Frequent kidney stones, history of urosepsis
Acute Exacerbation and/or Progression of Chronic Illness:
Left obstructing ureteral stone, sepsis
<Alis Cannon PA-C - Last Filed: 11/09/23 19:19>
*Radiology
Radiology exam reviewed: preliminary read by ED provider and radiology read reviewed
*Pulse Oximetry
Patient hypoxic: no
*EKG
Interpreted by ED Provider?: NA
*Cnc Technician Interpretation
Rate: tachycardiac
Interpretation: abnormal
Heart Rate: 106
Rhythm: sinus
*Critical Care Note
Total Time (30-74mins, 75-104mins- exclusive of procedures): Not Applicable
Data Reviewed
Review of Other/Old Records Reveals: Labs and Records
Source: previous hospital records (Reviewed admission record from for for urosepsis)
<Freddy Kevin MD - Last Filed: 11/09/23 18:24>
*Critical Care Note
Total Time (30-74mins, 75-104mins- exclusive of procedures): Not Applicable
<Alis Cannon PA-C - Last Filed: 11/09/23 19:19>
Patient Management
Discussion with other providers: Hospitalist and [employer] (Urology-Dr. Barreto)
Escalation/DeEscalation of care consider admission/obs:
Admission for emergent ureteral stent and IV antibiotics for urosepsis
ED Attending Note
<Alis Cannon PA-C - Last Filed: 11/09/23 19:19>
-
Portions of this chart may have been created with voice recognition software.� Occasional wrong word or��sound alike� substitutions may have occurred due to the inherent limitations of voice recognition software.
Discharge Plan
Departure
Patient Disposition: Admit
Date of Disposition: 11/09/23
Time of Disposition: 15:50
Presentation/result/management discussed w/ accepting MD/DO: Hospitalist
Discharge Problem:
Left ureteral stone, Sepsis
Interventions
Interventions:
*Risk Screen - Suicide Last Done: 11/09/23 12:40
*General Assessment Last Done: 11/09/23 13:01
*Neglect/Abuse Screening Last Done: 11/09/23 12:40
ED- Fall Risk Assessment Last Done: 11/09/23 12:40
*ED COVID-19 Vaccine History Last Done: 11/09/23 12:26
*Nursing Disposition Last Done: 11/09/23 18:02
MX-Ehfjmj-Ljvonypvic Assessment Last Done: 11/09/23 13:02
ED-Female Genitourinary Assessment Last Done: 11/09/23 13:02
Discharge Date and Time
Discharge Date/Time: 11/09/23 18:03
[2023-11-09] MEDS: TORADOL 15 MG IV (12:59)
[2023-11-09] MEDS: NSS 1000 IV ×4 (12:59→19:34)
[2023-11-09] MEDS: ZOFRAN 4 MG IV (13:00)
[2023-11-09 13:01] LABS: % Basophils 0.4 % (0-2); % Eosinophils 0.1 % (0-6); % Immature Granulocytes 0.4 % (0-0.5); % Lymphocytes 4.2 % (20.5-51.1); % Monocytes 7.5 % (1.7-9.3); % Neutrophils 87.4 % (42.2-75.2); Absolute Basophils 0.1 10^3/uL (0-0.2); Absolute Immature Granulocytes 0.1 10^3/uL (0-0.05); Absolute Lymphocytes 0.8 10^3/uL (1.2-3.4); Absolute Monocytes 1.5 10^3/uL (0.1-0.6); Absolute Neutrophils 17.3 10^3/uL (1.4-6.5); Hematocrit 39.5 % (37.0-47.0); Hemoglobin 13.8 g/dL (12.0-16.0); Mean Corp Hgb Conc. 34.9 g/dL (33.0-37.0); Mean Corpuscular Hgb 30.4 pg (27.0-31.0); Mean Platelet Volume 8.7 fL (7.4-10.4); Nucleated Red Blood Cells % 0 %; Platelet Count 259 10^3/uL (130-400); Red Blood Cell Count 4.54 10^6/uL (4.20-5.40); Red Cell Dist. Width 14.3 % (11.5-14.5); White Blood Cell Count 19.8 10^3/uL (4.8-10.8)
[2023-11-09 13:14] LABS: Lactic Acid 1.3 mmol/L (0.7-2.0)
[2023-11-09 13:18] LABS: Urine Albumin Trace (Neg - Trace); Urine Bilirubin Negative (Negative); Urine Color Yellow; Urine Glucose Negative (Negative); Urine Ketone Trace (Negative); Urine Leukocyte 2+ (Negative); Urine Nitrite Positive (Negative); Urine Occult Blood 3+ (Negative); Urine Specific Gravity 1.015 (<1.030); Urine Urobilinogen Negative (Neg - 1+)
[2023-11-09 13:24] LABS: Urine Character Slightly Cloudy (Clear)
[2023-11-09 13:28] LABS: ALT (SGPT) 45 U/L (0-35); AST (SGOT) 44 U/L (14-36); Albumin 3.8 g/dl (3.5-5.0); Alkaline Phosphatase 123 U/L (38-126); Blood Urea Nitrogen 21 mg/dl (7-17); Calcium 10.7 mg/dl (8.4-10.2); Carbon Dioxide 20 mmol/L (22-30); Chloride 106 mmol/L (98-107); Glucose 186 mg/dl (70-99); Potassium 4.1 mmol/L (3.5-5.1); Sodium 133 mmol/L (135-145); Total Bilirubin 1.1 mg/dl (0.2-1.3); Total Protein 6.7 g/dl (6.3-8.2); eGFR 35.42
[2023-11-09 13:39] LABS: Urine Bacteria Many (Negative); Urine Red Blood Cell 0-2 /HPF (0-2); Urine White Cell 50-60 /HPF (0-5)
[2023-11-09] MEDS: ROCEPHIN 1000 MG IV (13:46)
--- NOTE | 2023-11-09 16:44 | HPS.HSE ---
Family Physician
-
Family Physician: Eugene Molina MD
Chief Complaint
-
Flank pain
History of Present Illness
53-year-old woman with a history of past urosepsis, kidney stones, ID diabetes presents with left flank pain. Pain started yesterday, in her left lower back/flank. Pain continued and she became increasingly fatigued and nauseous. Poor appetite
with chills and a fever up to 101.1 this morning at home. She denies any chest pain, shortness of breath, or vomiting. She states symptoms feel similar to last time she had urosepsis a few months ago from an obstructing kidney stone. She had a
stent removed at the end of August. She follows with Dr. Aguirre.
Medical History
Past Medical History
Past Medical History: Reports Other
Additional Past Medical History:
IDDM
broken left wrist
kidney stones
Appendectomy,
(x2)
Urological procedures, stents
Past Surgical History: Reports Other
Additional Past Surgical History:
See above
Social History
Tobacco: Smoker
Alcohol: None
Drug: None
Family History
Family History: Not pertinent
Allergies / Home Medications
Allergies reflects when Allergies were last updated in [facility].
Home Medications with original date entered in [facility]
Allergy/Medication List:
Allergies
Allergy/AdvReac Type Severity Reaction Status Date / Time
No Known Allergies Allergy Verified 09/18/23 07:31
Home Medications
therapeutic multivitamin 1 tab PO DAILY supplement 08/18/23
insulin glargine-yfgn 100 unit/mL (3 mL) subcutaneous pen 15 unit SC DAILYPRN PRN high blood sugar 11/09/23
metformin 500 mg tablet 500 mg PO BIDPRN PRN high blood sugar 11/09/23
naproxen sodium 220 mg tablet (Aleve) 440 mg PO DAILY PRN mild pain 11/09/23
oxycodone 1 tab PO ONCE PRN sleep 11/09/23
Review of Systems
-
History Source: Patient
A 12 point ROS was completed and negative except as noted: Yes
Physical Exam
Vital Signs
Vital Signs
Temp Pulse Resp BP Pulse Ox
99.7 F 101 23 122/46 99
11/09/23 12:26 11/09/23 15:45 11/09/23 15:45 11/09/23 15:44 11/09/23 15:45
Physical Exam
General: Well Developed, Well Nourished, No Apparent Distress and Obese
HEENT: Moist mucous membranes, [place] Conjunctivae, No Ptosis, Nose Appears Normal and Ears Appear Normal
Respiratory: Clear
Cardiac: S1/S2 and Regular Rhythm
GI: Soft, Non Tender and Non Distended
Musculoskeletal: No Clubbing, No Cyanosis and No Edema
Skin: Warm and Dry; No Rash or Jaundice
Neuro: Awake, Alert, Oriented and AO x 3
Psych: Calm
Laboratory Results
-
11/09/23 12:52
11/09/23 12:52
Laboratory Results
Lactic Acid 1.3 mmol/L (0.7-2.0) 11/09/23 12:52
Total Bilirubin 1.1 mg/dl (0.2-1.3) 11/09/23 12:52
AST 44 U/L (14-36) H 11/09/23 12:52
ALT 45 U/L (0-35) H 11/09/23 12:52
Alkaline Phosphatase 123 U/L (38-126) 11/09/23 12:52
Data Reviewed
-
Lab Data: Labs Reviewed by me
Impression/Plan
-
IMPRESSION:
53 woman with infected kidney stone and sepsis.
WBC 19.8
BUN/Creat 21/1.7 (last known creat 1.1)
UA looks infected
PLAN:
1. Infected stone - urology consulted
Going to OR today for stent
OK to eat after stent
IV abx
2. Acute renal failure
IV fluids until renal function recovers
Recheck in am
3. Insulin dependent DM
Supplemental insulin as needed
4. Essential HTN - hold bp meds until sepsis is fully resolved.
VCD for DVTp
Full code
--- NOTE | 2023-11-09 17:46 | CONS.URO ---
Consultation
-
Date/Time Consultation Requested: 11/09/23 1600
Date/Time Consultation Performed: 11/09/23 1645
Requesting Provider: ER
Performing Provider: Estevan
Reason for Consultation: urosepsis, obstructing left ureteral stone
Medical History
History of Present Illness
53F w/ h/o E. Coli urosepsis and obstructive uropathy presents to ER w/ left flank and back pain x24 hrs.
Noted persistent pain, fatigue, nausea, poor appetite, chills, fever up to 101.1F at home this AM.
'Symptoms feel similar to last time' when she had urosepsis and obstructing stones.
08/18/23: s/p right retrograde pyelogram + stent placement (in setting of urosepsis and obstructive uropathy).
09/18/23: s/p right URS/LL/stone extraction/stent exchange.
Tobacco: Smoker
Alcohol: None
Drug: None
Family History
Family History: Not pertinent
Allergies / Home Medications
Past Medical History
Past Medical History: IDDM and Other (nephrolithiasis)
Past Surgical History: Appendectomy, (x2), Orthopedic (broken left wrist) and Urological (right URS/LL/stone extraction/stent exchange)
Social History
Tobacco: Smoker
Alcohol: None
Drug: None
Personal:
Living: With Family
Employment: Employed
Family History
Family History: Reviewed & Not Pertinent
Allergies/Home Medications
Allergies
Allergy/AdvReac Type Severity Reaction Status Date / Time
No Known Allergies Allergy Verified 09/18/23 07:31
Home Medications
�Medication �Instructions �Recorded �Confirmed �Type
therapeutic multivitamin 1 tab PO DAILY supplement 08/18/23 11/09/23 History
insulin glargine-yfgn 100 unit/mL 15 unit SC DAILYPRN PRN high blood 11/09/23 11/09/23 History
(3 mL) subcutaneous pen sugar
metformin 500 mg tablet 500 mg PO BIDPRN PRN high blood 11/09/23 11/09/23 History
sugar
naproxen sodium 220 mg tablet 440 mg PO DAILY PRN mild pain 11/09/23 11/09/23 History
(Aleve)
oxycodone 1 tab PO ONCE PRN sleep 11/09/23 11/09/23 History
Review of Systems
-
History Source: Patient
A 12 point Review of Systems was completed except as noted: Yes
Physical Exam
Vital Signs
Vital Signs
Temp Pulse Resp BP Pulse Ox
99.7 F 110 28 124/50 95
11/09/23 12:26 11/09/23 17:02 11/09/23 17:02 11/09/23 17:02 11/09/23 16:00
Lab / Testing Results
Laboratory Results
11/09/23 12:52
11/09/23 12:52
Physical Exam
General: Well Developed, Well Nourished, Chills and Poor Appetite
HEENT: Normocephalic and Anicteric
Respiratory: Non Labored Respirations
Cardiac: S1/S2
Breast: Deferred by me
GI: Soft and Non Tender
Rectal: Deferred by Provider
Genito-urinary: No Costovertebral Tend
Musculoskeletal: No Edema
Skin: Warm and Dry
Neuro: AO x 3, No Motor Deficits and Nonfocal/Grossly Intact
Hematologic/Lymphatic: No Lymphadenopathy
Psych: Calm and Intact Judgement
Assessment / Plan
-
Urosepsis
Obstructing proximal left ureteral stone
AUBREY
H/o E. Coli urosepsis
H/o nephrolithiasis
CTAP w/o IV contrast =>
4 mm obstructing calculus in the proximal left ureter.
Bilateral numerous intrarenal calculi. Renal cysts.
WBC 19.8
Cr 1.7 (baseline WNL)
Detailed discussion including SDM had w/ patient regarding her active urologic conditions that present a urologic emergency - urosepsis and obstructive uropathy secondary to obstructing proximal left ureteral stone.
Reviewed risks, benefits, alternatives, and potential complications including but not limited to urosepsis, bleeding, ureteral/bladder injury, need for additional procedures/surgeries.
- Maintain NPO
- To OR emergently this evening for cysto + LEFT ureteral stent insertion
- Continue IV abx (initiated in ER)
- Admitted to Hospital Medicine
D/w ER.
D/w Hospitalist.
D/w Anesthesiologist.
D/w patient.
Data Reviewed
-
Total Time Spent with Patient (in minutes): 75
CT Scan: Image personally visualized and interpreted, Report Reviewed by Me, Discussed with Physician and Discussed with Patient
Lab Data: Labs Reviewed, Discussed with Physician and Discussed with Patient
Old Records: Reviewed
--- NOTE | 2023-11-09 18:02 | W.SUR.PREOP ---
Pre-Operative Surgical Note
-
I have examined this patient prior to the performance of the scheduled procedure.
The patient's condition is unchanged from the time of the current History and
Physical and the patient is able to undergo the scheduled procedure.
CT imaging reviewed.
Left laterality marked.
Surgical consent signed on chart.
To OR emergently for cysto + left stent insertion.
D/w patient at bedside.
--- NOTE | 2023-11-09 18:38 | W.IMMPOSTOP ---
Surgical Immed Post Op Note
-
Primary Surgeon: Estevan
Pre-op Diagnosis: Urosepsis, obstructing proximal left ureteral stone
Post-op Diagnosis: Same
Procedure Performed: cysto + left ureteral stent
Anesthesia Type: LMA
Specimen / Cultures: None/None
Estimated Blood Loss: Negligible
Drains: 6Fr x 24 cm JJ left ureteral stent
Complications: None
Operative Findings: brisk efflux of purulent urine from distal curl of left ureteral stent and UO upon deployment, final KUB and cysto confirming appropriate stent position.
--- NOTE | 2023-11-09 19:03 | SUR.PHASEI ---
Pt adm to PACU very drowsy but arousable, VSS, BBS clear. Pt too sleepy to rate pain, no urethral dg. HOB up 15 degrees
[2023-11-09 19:10] LABS: Glucose - Point of Care 141 mg/dl (70-99)
--- NOTE | 2023-11-09 19:39 | SUR.PHASEI ---
Pt more awake and alert, VSS stable. BBS clear, no urethral dg, denies pain. Pt stable for transfer to floor
--- NOTE | 2023-11-09 21:00 | PTCARENOTE ---
Received pt in bed from PACU> s/p cysto + left ureteral stent ([place]). Post op vitals> T 99.1, HR 89, RR 18, BP 104/64, pox 95% 2LNC- O2 removed 93%RA. No c/o pain. NSS infusing #20 RAC at 125ml/hr. Pt voiding w/o difficulty. PMH and medications
reviewed by this RN and patient. Call [email or web address] within reach.
[2023-11-10 01:00] LABS: Glucose - Point of Care 205 mg/dl (70-99)
[2023-11-10 03:37] VITALS: BP 105/56
[2023-11-10] MEDS: NSS 1000 IV (03:49)
[2023-11-10 06:06] LABS: Hemoglobin 11.7 g/dL (12.0-16.0); Mean Corp Hgb Conc. 33.4 g/dL (33.0-37.0); Mean Corpuscular Hgb 30.4 pg (27.0-31.0); Mean Corpuscular Volume 90.9 fL (81.0-99.0); Mean Platelet Volume 9.1 fL (7.4-10.4); Platelet Count 210 10^3/uL (130-400); Red Blood Cell Count 3.85 10^6/uL (4.20-5.40); Red Cell Dist. Width 14.5 % (11.5-14.5); White Blood Cell Count 15.8 10^3/uL (4.8-10.8)
[2023-11-10 06:33] LABS: Blood Urea Nitrogen 22 mg/dl (7-17); Calcium 9.5 mg/dl (8.4-10.2); Carbon Dioxide 19 mmol/L (22-30); Chloride 114 mmol/L (98-107); Glucose 177 mg/dl (70-99); Potassium 4.2 mmol/L (3.5-5.1); Sodium 139 mmol/L (135-145); eGFR 59.71
[2023-11-10 07:00] VITALS: BP 111/62
[2023-11-10 07:12] LABS: Glucose - Point of Care 188 mg/dl (70-99)
[2023-11-10 07:13] VITALS: BP 111/62
[2023-11-10] MEDS: NOVOLOG FLEXPEN-MODERATE RESISTANCE 1 UNITS SC ×2 (08:18→12:56)
[2023-11-10 11:00] VITALS: BP 109/61
--- NOTE | 2023-11-10 11:47 | CM ---
Initial assessment completed with patient who lives with her and 2 sons (17 and 21 y/o), in a 2 story home with no basement, B/B on 2nd and 1/2 bath on 1st, no steps. 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 No psychiatric
hospitalizations. [facility]acy is [facility] [address] in [place] and PCP is Eugene Molina with [facility]. Discharge Plan of Care: Home with No needs.
--- NOTE | 2023-11-10 12:18 | W.PN.HOSP.TC ---
Addendum entered and electronically signed by Russ Owens MD 11/10/23 12:39:
More than 30 minutes spent in discharge including
Final examination of the patient
Summarizing hospital stay
Instructions for continuing care to all relevant caregivers
Preparation of discharge records, prescriptions, and referral forms
Total time spent (in minutes):41
Original Note:
Today's Communication/Plan
-
dc to home with OP Abx, strict return precautions with cultures pending
OP Urology f/u
Assessment / Plan
Assessment / Plan
Assessment :
4 mm obstructing calculus in the proximal left ureter.
Sepsis POA (leukocytosis, tachycardia, UTI)
- s/p OR 11/08: cysto + left ureteral stent
- d/w Urology, dc on 10 days Abx (will use Cefdinir based on prior culture data). Noted current cultures are pending and patient aware on return precautions.
Acute hyponatremia
AUBREY, obstructive
- improving on IVF
IDDM
- continue MFM and insulin
DVT ppx: SCDs
Code: Full
Anticipated Discharge: Today
Subjective/Interval History
-
Date of Service: November 10, 2023
doing well no complaints
Objective Data
-
Labs:
Laboratory Results
11/10/23
05:53
WBC 15.8 H
Hgb 11.7 L
Hct 35.0 L
Plt Count 210
Sodium 139
Potassium 4.2
Chloride 114 H
Carbon Dioxide 19 L
BUN 22 H
Creatinine 1.1 H
Glucose 177 H
Calcium 9.5
Vital Signs:
Vital Signs
Temp Pulse Resp BP Pulse Ox
97.9 F 69 16 111/62 95
11/10/23 07:00 11/10/23 07:00 11/10/23 07:00 11/10/23 07:00 11/10/23 07:00
I&O
11/09/23 11/10/23 11/11/23
06:59 06:59 06:59
Intake Total 720 / 720
Balance 720 / 720
Physical Exam
-
General: No Apparent Distress
HEENT: Normocephalic and Atraumatic
Respiratory: Negative Wheezes
Cardiac: Regular Rhythm and S1/S2
GI: Soft
Musculoskeletal: No Edema
Neuro: AO x 3
Hematologic / Lymphatic: No Lymphadenopathy
Psych: Calm
Data Reviewed
-
Total Time Spent with Patient (in minutes): 42
Labs: Labs Reviewed by me
--- NOTE | 2023-11-10 12:33 | W.PN.UPDATE ---
Update Note
Progress Note Update
Urosepsis
Obstructing proximal left ureteral stone - s/p left ureteral stent placement
AUBREY - resolved
Non-obstructing left renal stones
11/08: s/p emergent cysto + left ureteral stent placement
Afebrile
HDS
WBC 15.8 (from 19.8)
Cr 1.1 (from 1.7)
UCx pending
BCx pending
Patient noted to Hospitalist she wishes to leave today due to child having college visit tomorrow AM.
Risks of pending suboptimal treatment of cUTI/urosepsis/possible bacteremia reviewed w/ patient by Hospitalist.
- Possible discharge today on treatment course for complicated UTI based on UCx S/S from 09/18/23
- F/U with Dr. Aguirre in 1-2 weeks for preop visit to repeat UCx and schedule outpatient stone surgery
D/w Dr. Solano.
--- NOTE | 2023-11-10 12:39 | W.DS.TRANS ---
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
-
Discharge Instructions:
Discharge Diagnosis/Procedures left ureteral stone s/p stent placement 11/08
Diet Diabetic, Carb Controlled
Activity As tolerated
Bathing Restrictions None
Instructions:
Stand-Alone Forms:
Changes to Home Medications: No
Discharge Medications:
DC Medications w/original date entered in [employer]
therapeutic multivitamin 1 tab PO DAILY supplement 08/18/23
insulin glargine-yfgn 100 unit/mL (3 mL) subcutaneous pen 15 unit SC DAILYPRN PRN high blood sugar 11/09/23
metformin 500 mg tablet 500 mg PO BIDPRN PRN high blood sugar 11/09/23
naproxen sodium 220 mg tablet (Aleve) 440 mg PO DAILY PRN mild pain 11/09/23
oxycodone 1 tab PO ONCE PRN sleep 11/09/23
cefdinir 300 mg capsule 300 mg PO BID #20 caps 11/10/23
Home Medication Changes
Pending Results: No
Total time spent discharging patient (in min): 41
[2023-11-10 12:40] LABS: Glucose - Point of Care 178 mg/dl (70-99)
--- NOTE | 2023-11-10 12:46 | CM ---
Patient has been medically cleared for discharge to home with no additional skilled services. Patient has arranged for transport home.
== END 2023-11-10 13:26 | disposition home or self-care (01) | DRG 660 ==
LOC: 2 NORTH 17:09
PROVIDERS: Physician Assistant; ADMITTING PHYSICIAN Internal Medicine; ATTENDING PHYSICIAN Internal Medicine; CONSULT PHYSICIAN Surgery; EMERGENCY PHYSICIAN Emergency Medicine; FAMILY PHYSICIAN Family Medicine
PROC: 0T778DZ Dilation of Left Ureter with Intraluminal Device, Via Natural or Artificial Opening Endoscopic (ICD-10-PCS; 2023-11-10)
DX: N13.6 Pyonephrosis (principal); E87.1 Hypo-osmolality and hyponatremia; B96.20 Unspecified Escherichia coli [E. coli] as the cause of diseases classified elsewhere; E11.9 Type 2 diabetes mellitus without complications; I10 Essential (primary) hypertension; N17.9 Acute kidney failure, unspecified; Z79.4 Long term (current) use of insulin; Z87.442 Personal history of urinary calculi
CPT/HCPCS: 74018; 74176; 76000; 80048; 80053; 81003; 81015; 82962; 83036; 83605; 85025; 85027; 87040; 87077; 87086; 87186; 96361; 96374; 96375; 99285; C2617

== ENCOUNTER 2023-12-11 06:22 | Day surgery (SDC) | payer OTHER, SELFPAY ==
--- NOTE | 2023-12-08 11:43 | PTCARENOTE ---
office stated to use EKG from 08/18/23 for surgery. EKG abnormal, this EKG was used for prior surgery on 11/09/23.
[2023-12-11] VITALS (9 sets, daily range): BP systolic 129–160; BP diastolic 73–98; BMI 31.2
[2023-12-11 07:52] LABS: Glucose - Point of Care 159 mg/dl (70-99)
[2023-12-11] MEDS: NORMOSOL-R 1000 IV (08:00)
[2023-12-11 10:16] LABS: Glucose - Point of Care 164 mg/dl (70-99)
[2023-12-11] MEDS: Pyridium 200 MG PO (10:44)
[2023-12-14 07:28] LABS: Stone Analysis Mass 5 mg
== END 2023-12-11 11:35 | disposition home or self-care (01) ==
LOC: SDS 06:22
PROVIDERS: ATTENDING PHYSICIAN Specialist
DX: N20.0 Calculus of kidney (principal)
CPT/HCPCS: 52356; 74018; 76000; 82365; 82962; 87077; 87086; 87186; A4300; C1894; C2617

== ENCOUNTER 2024-12-29 13:49 | Inpatient (IN) | payer OTHER, SELFPAY ==
[2024-12-29] VITALS (21 sets, daily range): BP systolic 111–167; BP diastolic 58–99; BMI 30.7
[2024-12-29] MEDS: DILAUDID 1 MG IV (09:41)
[2024-12-29] MEDS: TORADOL 15 MG IV (09:41)
[2024-12-29] MEDS: ZOFRAN 4 MG IV (09:41)
[2024-12-29] MEDS: NSS 1000 IV ×3 (09:41→23:18)
[2024-12-29 10:49] LABS: Hematocrit 41.6 % (37.0-47.0); Hemoglobin 14.3 g/dL (12.0-16.0); Mean Corp Hgb Conc. 34.4 g/dL (33.0-37.0); Mean Corpuscular Volume 87.9 fL (81.0-99.0); Nucleated Red Blood Cells % 0 %; Platelet Count 302 10^3/uL (130-400); Red Cell Dist. Width 14.0 % (11.5-14.5)
--- NOTE | 2024-12-29 10:57 | ED.GENMED ---
History of Present Illness
General
Chief Complaint: Flank Pain
Source: patient
Exam Limitations: none
Time Seen by Provider: 12/29/24 08:58
Nursing documentation reviewed up to this point in time: agreed with
History of Present Illness
History of Present Illness:
see MDM
Past History
Past History
ED Past Medical History: NIDDM and Other (broken left wrist in the past, kidney stones)
ED Past Surgical History: Appendectomy, (x2) and Urological
Patient has exhibited threatening behavior?: No
Social History
Tobacco: Smoker
Alcohol: None
Personal:
Living: with family
Employment: Employed
Family History
Family History: Unable to obtain
Review of Systems
Review of Systems
Allergies reviewed?: Yes
All Other Systems: Not applicable
Phy Exam
Physical Exam
Physical Exam:
GENERAL: Alert, uncomfortable
Neck: supple
CARDIAC: Regular rate and rhythm .
LUNGS: Clear breath sounds bilaterally, no acute respiratory distress, no wheezes/rales/rhonchi
ABDOMEN: Soft, normal bowel sounds, mildly distended, mild right flank and right upper quadrant tenderness, mild right lower quadrant tenderness, no guarding, no rebound, neg steel's
Right CVA tenderness
rectal: ext nonmbleeding hemorrhoids; nontender, no fecal impaction
NEUROLOGICAL: Alert and oriented, no focal neuro deficits
SKIN: Warm and dry, skin intact.
PSYCH: Normal and appropriate interaction.
Course
Orders/Labs/Results
Orders:
Orders
12/29/24 09:17
CT Abd/Pel (IV only)-DH only Urgent
Comment:
Reason For Exam: R flank pain, tenderness
0.9% Sodium Chloride 1000 ml [Nss] 1,000 ml IV BOLUS
HYDROmorphone [Dilaudid] 1 mg IV NOW STA
Ketorolac [Toradol] 15 mg IV NOW STA
Ondansetron Injectable [Zofran] 4 mg IV NOW STA
12/29/24 10:43
Complete Blood Count/With Diff Urgent
Comprehensive Metabolic Panel Urgent
Lipase Urgent
Urinalysis Reflex To Culture Urgent
Date Specimen was Collected: 12/29/24
Time Specimen was Collected: 09:26
Urine Microscopic Reflex Cult Urgent
Urine Culture Urgent
ANEUDY Source: U
Specimen Description:
Date Specimen was Collected: 12/29/24
Time Specimen was Collected: 09:26
12/29/24 12:54
Piperacillin/Tazo 3.375 Gram [Zosyn] 3.375 gram in 50 ml IV NOW
12/29/24 13:04
0.9% Sodium Chloride 1000 ml [Nss] 1,000 ml IV BOLUS
12/29/24 13:30
Admit/Transfer Patient As Directed
Co-Sign Provider:
Level of Care: Inpatient admission
Assign to:: Medical/Surgical
Physician / Group: nisha rust
Diagnosis: Complicated UTI
Reason for Hospitalization: Complicated UTI
Expected length of stay greater than two midnights?: Yes
ELOS- Estimated Length of Stay in days: 2
I certify the patient meets the requirements for IP care: Yes
Code Status As Directed
Resuscitation Status: Full Code
PRN Pain Medication Management As Directed
May give lesser potent ordered pain med per pt: Yes
preference::
Protocol:: Medication orders for pain may be administered in a
manner that supports deferring to patient preference
when the pt is:
- Requesting an ordered lesser potent pain medication.
Least to most potent pain medications are defined
as: acetaminophen < NSAID < tramadol < opioids
(morphine, oxycodone, hydromorphone).
- Requesting a lesser dose of the same medication IF
ORDERED.
- Requesting a less intrusive route of administration
if both routes are prescribed by the provider (PO <
IV).
Abnormal Lab Results
12/29/24
10:43
Absolute Monos (auto) 0.7 H 10^3/uL
(0.1-0.6)
Lymphocytes % 20.3 L %
(20.5-51.1)
Chloride 109 H mmol/L
(98-107)
Glucose 145 H mg/dl
(70-99)
Ur Occult Blood Reflex 4+ A
(Negative)
Urine Nitrite (Reflex) Positive A
(Negative)
Leukocyte Esterase Rfl 3+ A
(Negative)
Urine RBC 30-40 A /HPF
(0-2)
Urine WBC (Reflex) 50-60 A /HPF
(0-5)
Urine Bacteria (Reflex) Many A
(Negative)
Urine Albumin (Reflex) 2+ A
(Neg - Trace)
12/29/24 10:43
12/29/24 10:43
Vital Signs
Initial and Last Documented VS:
Initial Vital Signs
Temp Pulse Resp BP Pulse Ox
36.8 C 96 18 167/99 98
12/29/24 08:45 12/29/24 08:45 12/29/24 08:45 12/29/24 08:45 12/29/24 08:45
Last Documented Vital Signs
Temp Pulse Resp BP Pulse Ox
36.5 C 83 20 119/71 95
12/29/24 12:59 12/29/24 14:05 12/29/24 14:05 12/29/24 14:05 12/29/24 14:05
MDM/Problems Addressed
Differential Diagnosis Includes:
see MDM
MDM/Problems Addressed:
Note:
CHIEF COMPLAINT(S)
- Suspected kidney stone or possible bowel obstruction.
- Constipation and altered bowel habits.
HISTORY OF PRESENT ILLNESS
The patient is a 54-year-old female with a history of prior kidney stones presenting with concerns that she may be trying to pass another kidney stone or have a bowel obstruction. She reports the onset of pain starting yesterday, primarily on the
right side, which she describes as 'crampy.' The patient has a history of irregular bowel movements, typically every three to four days, but notes a change to string-like stools recently, with no significant bowel movement in two weeks. She has not
experienced fever or chills, though she feels warm. The patient denies burning with urination, urgency, or blood in urine, but reports bright red blood with stool passage occasionally, attributing it to external hemorrhoids. Pain is occasionally
exacerbated by movement. She previously took Dulcolax3 days ago, resulting in watery output. The patient mentions a sensation of rectal pressure and bloating. She suspects the symptoms are consistent with her past experience of kidney stones but is
uncertain if there could be concurrent issues such as constipation. The patient declined external signs of diverticulitis or an abdominal rash. She experiences discomfort upon palpation in specific abdominal areas.
PAST MEDICAL AND SURIGICAL HISTORY
- History of kidney stones, previously required stenting.
- Cholecystectomy (gall bladder removal).
ADDITIONAL HISTORY OBTAINED FROM SOURCES OTHER THAN THE PATIENT
- None.
EXTERNAL RECORDS REVIEWED
- None.
CHRONIC MEDICAL CONDITIONS SIGNIFICANTLY AFFECTING CARE
- History of previously treated kidney stones.
SOCIAL HISTORY
- Patient reports history of long-standing external hemorrhoids.
MEDICATIONS
- Dulcolax (recently taken, no regular medications mentioned).
REVIEW OF SYSTEMS
- Gastrointestinal: Constipation, change in stool caliber to string-like, abdominal pain, bright red blood per rectum.
- Urinary: Denies dysuria, urgency, or hematuria.
- General: Denies fever or chills but reports feeling unusually warm.
PHYSICAL EXAM
- Abdominal examination reveals tenderness to palpation, particularly on the left side, with palpable discomfort upon deep palpation. The patient reports increased discomfort when pressure is applied to the abdomen.
- Rectal examination reveals no stool impaction.
- Nursing notes reviewed and vital signs reviewed.
PROBLEM LIST
Acute:
- Suspected renal colic due to kidney stone.
- Altered bowel habits with constipation and suspected bowel obstruction.
PLAN
- Consider non-contrast computed tomography (CT) scan to evaluate for kidney stones.
- Administer pain relief medication and antiemetics as needed.
- Continue monitoring and offer supportive care for relief of discomfort.
DIFFERENTIAL DIAGNOSIS
The Differential Diagnosis includes, in no particular order and is not limited to:
1. Nephrolithiasis
2. Bowel obstruction
3. Constipation-associated symptoms
4. Diverticulitis
5. Irritable bowel syndrome
6. Gastroenteritis
7. Colitis
8. Hemorrhoid-associated bleeding
9. Urinary tract infection
10. Abdominal aneurysm
54 y/o F
h/o kdiney stones
R back/flank pain x 1 day, nauesa, chills
very uncomfortlabe with movement inthe stretcher
stable vitals
mild abd tenderness
urine pos
wbc normal
cr normal
CT shows obstructiing prox calculus R ureter with s tranding kidney c/w infected stone
pt is still hemodynamically stable
tormlb2uil cultures reviewd, sensntiive to zosyn
dr. maradiaga aware
will take pt to OR at 6 pm
medicine admit
*Pulse Oximetry
SaO2: 96
Oxygen Mode of Delivery: Room air
Patient hypoxic: no (95)
*Critical Care Note
Total Time (30-74mins, 75-104mins- exclusive of procedures): Not Applicable
ED Attending Note
-
Portions of this chart may have been created with voice recognition software.� Occasional wrong word or��sound alike� substitutions may have occurred due to the inherent limitations of voice recognition software.
Discharge Plan
Departure
Patient Disposition: Admit
Date of Disposition: 12/29/24
Time of Disposition: 12:59
Admit to: Med/Surg
Presentation/result/management discussed w/ accepting MD/DO: Hospitalist
Condition: Fair
Covid-19: Not Applicable
Discharge Problem:
UTI (urinary tract infection), Ureterolithiasis
Interventions
Interventions:
*Risk Screen - Suicide Last Done: 12/29/24 08:45
*General Assessment Last Done: 12/29/24 09:53
*Neglect/Abuse Screening Last Done: 12/29/24 08:45
*ED- Fall Risk Assessment Last Done: 12/29/24 09:53
*ED COVID-19 Vaccine History Last Done: 12/29/24 09:53
UC-Ksiblf-Ymadwptrnl Assessment Last Done: 12/29/24 09:53
ED-Female Genitourinary Assessment Last Done: 12/29/24 09:53
[2024-12-29 11:03] LABS: ALT (SGPT) 16 U/L (0-35); AST (SGOT) 15 U/L (14-36); Albumin 3.8 g/dl (3.5-5.0); Alkaline Phosphatase 117 U/L (38-126); Blood Urea Nitrogen 13 mg/dl (7-17); Calcium 10.0 mg/dl (8.4-10.2); Carbon Dioxide 22 mmol/L (22-30); Chloride 109 mmol/L (98-107); Estimated Creatinine Clearance 88 ml/min; Glucose 145 mg/dl (70-99); Lipase 63 U/L (23-300); Potassium 4.3 mmol/L (3.5-5.1); Sodium 135 mmol/L (135-145); Total Protein 6.6 g/dl (6.3-8.2); eGFR > 60.00
[2024-12-29 12:14] LABS: Urine Character Cloudy (Clear)
[2024-12-29 12:26] LABS: Urine Squamous Cell >30 /LPF (Few)
[2024-12-29 12:27] LABS: Urine Red Blood Cell 30-40 /HPF (0-2); Urine White Cell 50-60 /HPF (0-5)
[2024-12-29] MEDS: ZOSYN 50 IV ×2 (13:16→23:24)
--- NOTE | 2024-12-29 13:16 | HPS.HSE ---
Addendum entered and electronically signed by Russ Owens MD 12/29/24 13:37:
External Hemorrhoids
- monitor H/H and for signs of ongoing clinical bleed
- OP GI f/u
Original Note:
Family Physician
-
Family Physician: Eugnee Molina MD
Chief Complaint
-
Flank pain
History of Present Illness
54 y/o F, history of kidney stones, HTN, DM, not on meds for either, presenting to ER with concern for kidney stone. She reports onset of pain yesterday, located on the Right flank which is described as crampy. No fevers/chills but feels warm. No
burning/urination or urgency. CT in ER is showing Obstructing right ureteropelvic junction calculus.
Patient also reports loose/irregular stools, with no significant BM in 2 weeks. Also reports occasional blood in stools which she attributes to her known history of external hemorrhoids.
Currently pain free without complaints.
Medical History
Past Medical History
Past Medical History: Reports Other (kidney stones, HTN, DM)
Past Surgical History: Reports Appendectomy and Orthopedic
Social History
Tobacco: Smoker
Alcohol: None
Personal:
Living: With Family
Employment: Employed
Family History
Family History: Not pertinent
Allergies / Home Medications
Allergies reflects when Allergies were last updated in [facility].
Home Medications with original date entered in [employer]
Allergy/Medication List:
Allergies
Allergy/AdvReac Type Severity Reaction Status Date / Time
No Known Allergies Allergy Verified 12/29/24 08:46
Home Medications
No Meds [No Current Medications] 12/29/24
Review of Systems
-
A 12 point ROS was completed and negative except as noted: Yes
Physical Exam
Vital Signs
Vital Signs
Temp Pulse Resp BP Pulse Ox
97.7 F 85 20 121/70 95
12/29/24 12:59 12/29/24 12:59 12/29/24 09:53 12/29/24 12:59 12/29/24 12:59
Physical Exam
General: No Apparent Distress
HEENT: NormoCephalic and Anicteric
Respiratory: Clear; No Wheezes
Cardiac: S1/S2 and Regular Rhythm
Neuro: AO x 3
Psych: Calm
Laboratory Results
-
12/29/24 10:43
12/29/24 10:43
Laboratory Results
Total Bilirubin 0.5 mg/dl (0.2-1.3) 12/29/24 10:43
AST 15 U/L (14-36) 12/29/24 10:43
ALT 16 U/L (0-35) 12/29/24 10:43
Alkaline Phosphatase 117 U/L (38-126) 12/29/24 10:43
Lipase 63 U/L (23-300) 12/29/24 10:43
Data Reviewed
-
CT Scan: Report Reviewed by me and Discussed with Physician
Lab Data: Labs Reviewed by me
Impression/Plan
-
Assessment:
Complicated UTI
- CT: Obstructing right ureteropelvic junction calculus. Bilateral nephroliths, appearance suggesting medullary nephrocalcinosis.
- Urology consulted; for OR today for stent/stone procedure
- IVF
- pain control and anti-emetics
- IV Zosyn; follow cultures
Essential HTN
- not on meds; monitor BP
Diabetes by history
- supposed to take oral meds - unsure of name
- check A1c
- SSI for now
Tobacco user
- Nicotine patch
Incidental findings on CT for outpatient evaluation:
- Probable noncalcified gallstones. Mild thickening of the wall the gallbladder fundus, suggesting focal adenomyomatosis
- Bilateral adrenal masses, which appear fairly stable dating back to CT scan of November 2020, and appearance and stability compatible with adenomas. No evidence of clinically active adenoma (electrolytes, BP stable)
- outpatient f/u with PCP For both issues
DVT ppx: SCDs
Code: Full
--- NOTE | 2024-12-29 14:14 | W.PN.URO.CBU ---
Today's Communication / Plan
-
to op room
Assessment / Plan
-
impassable stone wth systemic complaints will take to op room on iv and and try stent and if stable then u/l/s
Diagnosis
-
Date of Service: December 29, 2024
-
Patient Diagnosis:
rt upj 9 m sytone chills h/o urosepsis september 2023
Post Op Day:
Subjective
-
pain ni fevrv
Objective
-
Vital Signs
Temp Pulse Resp BP Pulse Ox
97.7 F 83 20 119/71 95
12/29/24 12:59 12/29/24 14:05 12/29/24 14:05 12/29/24 14:05 12/29/24 14:05
Laboratory Results
12/29/24 10:43
12/29/24 10:43
Review of Systems
-
: Flank Pain
Physical Exam
-
General - well developed, well nourished, no acute distress
Chest - clear bilaterally
Abdomen - soft, non-tender, positive bowel sounds, no CVAT, no incisional pain or distention
Genitalia - normal
Rectal - normal
Skin - warm & dry with no rash
Neuro - AOx3, no motor deficits
Extremities - no clubbing, no cyanosis, no edema
Incision - clean, dry
Dressing - clean, dry, intact
Care Review
Data Reviewed
Discussed with: Nursing
CT Scan: Image Pers Reviewed
--- NOTE | 2024-12-29 14:39 | CM ---
Patient seen at bedside in ED. Patient states that she lives with her and sons in a 2 story home. Patient has no DME at home. Patient is independent of ADL's and IADL's. Patient stated that her PCP is Dr. Molina and she uses the [facility] in
[place] for pharmacy needs. Patient does not anticipate any needs at discharge. CM will continue to follow for discharge planning needs.
Plan; home with no needs; pending medical treatment plan.
[2024-12-29 21:17] LABS: Glucose - Point of Care 145 mg/dl (70-99)
--- NOTE | 2024-12-29 22:05 | W.SUR.POST ---
Surgical Immediate Post Op
Note
Pre Op Diagnosis: rt upj stone with uti
Post Op Diagnosis: same
Procedure Performed: rt ureteroscopy laser basket and extraction rt jj stent
Primary Surgeon: hiren
Secondary Surgeons:
Anesthesia:dr iqbal general
Estimated Blood Loss: 1cc
Fluids: nss
Drains/Shunts:6 fr 24 cm jj stent
Specimens/Cultures: stone
Doppler/Duplex/Angio (Y/N):
Complications: 0
Operative Findings:
lg stone obstructing rt upj
[2024-12-29 22:20] LABS: Glucose - Point of Care 145 mg/dl (70-99)
[2024-12-29] MEDS: NICODERM TRANSDERMAL 14 MG TRANSDERM (23:26)
[2024-12-29 23:37] LABS: Glucose - Point of Care 194 mg/dl (70-99)
[2024-12-30] VITALS: BP 114/63
[2024-12-30] MEDS: NOVOLOG FLEXPEN-LOW RESISTANCE SC (00:16)
--- NOTE | 2024-12-30 00:17 | PTCARENOTE ---
pt rec'vd from PACU at 2300. pt is aax3, ambulated to restroom after arriving to unit, pink bloody urine, denies pain. Pt was oriented to unit and tolerated regular diet.
[2024-12-30 01:00] VITALS: BP 118/61
[2024-12-30 03:15] VITALS: BP 106/54
[2024-12-30] MEDS: ZOSYN 50 IV (05:44)
[2024-12-30 06:53] LABS: Hematocrit 40.7 % (37.0-47.0); Hemoglobin 13.8 g/dL (12.0-16.0); Mean Corp Hgb Conc. 33.9 g/dL (33.0-37.0); Mean Corpuscular Volume 87.9 fL (81.0-99.0); Platelet Count 232 10^3/uL (130-400); Red Cell Dist. Width 14.4 % (11.5-14.5)
[2024-12-30 07:02] LABS: Glucose - Point of Care 247 mg/dl (70-99)
[2024-12-30 07:03] LABS: Blood Urea Nitrogen 11 mg/dl (7-17); Calcium 9.5 mg/dl (8.4-10.2); Carbon Dioxide 19 mmol/L (22-30); Chloride 110 mmol/L (98-107); Estimated Creatinine Clearance 78 ml/min; Glucose 228 mg/dl (70-99); Potassium 4.6 mmol/L (3.5-5.1); Sodium 135 mmol/L (135-145); eGFR > 60.00
--- NOTE | 2024-12-30 07:28 | W.PN.HOSP.TC ---
Today's Communication/Plan
-
discharge
Assessment / Plan
Assessment / Plan
Physical Exam
General: No Apparent Distress
HEENT: NormoCephalic and Anicteric
Respiratory: Clear; No Wheezes
Cardiac: S1/S2 and Regular Rhythm
Abd: soft nontender bowel sounds present
Neuro: AO x 3 conversant coherent
Psych: Calm
54F hx kidney stones htn NIDDM Obesity here for complicated UTI right kidney stone obstruction
Complicated UTI
- CT: Obstructing right ureteropelvic junction calculus. Bilateral nephroliths, appearance suggesting medullary nephrocalcinosis.
- Urology consult appreciated s/p stone extraction and right stent placement 12/29
- significant symptomatic improvement noted post-procedure
- IVF completed
- pain control and anti-emetics
- no significant Leukocytosis, afebrile
-empiric zosyn transitioned to Augmentin planned for 7 days
- discussed with Urology, medically stable for discharge home with outpatient follow up recommendations.
Hx HTN
- not on meds; BP relatively well controlled at this time
NIDDM
- A1c 7.0
-cont lifestyle mgmt
Tobacco user
- Nicotine patch
Incidental findings on CT for outpatient evaluation:
- Probable noncalcified gallstones. Mild thickening of the wall the gallbladder fundus, suggesting focal adenomyomatosis
- Bilateral adrenal masses, which appear fairly stable dating back to CT scan of November 2020, and appearance and stability compatible with adenomas. No evidence of clinically active adenoma (electrolytes, BP stable)
- outpatient f/u with PCP For both issues
DVT ppx: SCDs
Code: Full
Total Time Preparing Discharge ___40____ minutes including examination of the patient, summary of the hospital stay, instructions for continuing care to all relevant caregivers; and preparation of discharge records, prescriptions, and referral
forms if necessary.
Anticipated Discharge: Today
Subjective/Interval History
-
Date of Service: December 30, 2024
Seen and examined at bedside in no acute distress resting comfortably in bed. Overall reports feeling well. Flank pain completely resolved. Denies new acute issues. Eager to go home.
Objective Data
-
Labs:
Laboratory Results
12/30/24
06:16
WBC 7.4
Hgb 13.8
Hct 40.7
Plt Count 232 D
Sodium 135
Potassium 4.6
Chloride 110 H
Carbon Dioxide 19 L
BUN 11
Creatinine 0.9
Glucose 228 H
Calcium 9.5
Vital Signs:
Vital Signs
Temp Pulse Resp BP Pulse Ox
98.7 F 80 20 106/54 96
12/30/24 03:15 12/30/24 03:15 12/30/24 03:15 12/30/24 03:15 12/30/24 03:15
I&O
12/29/24 12/30/24 12/31/24
06:59 06:59 06:59
Intake Total 2260 / 2260
Balance 2260 / 2260
[2024-12-30 07:55] VITALS: BP 134/71
[2024-12-30] MEDS: NICODERM TRANSDERMAL 14 MG TRANSDERM (08:37)
[2024-12-30] MEDS: NOVOLOG FLEXPEN-LOW RESISTANCE 2 UNITS SC (08:41)
[2024-12-30 09:32] LABS: Glycohemoglobin (HgbA1c) 7.0 % (4.0-5.6)
[2024-12-30] MEDS: FLORASTOR 250 MG PO (10:51)
[2024-12-30] MEDS: AUGMENTIN 875 MG/125 MG 1 TABLET PO (10:51)
[2024-12-30 11:20] VITALS: BP 125/64
--- NOTE | 2024-12-30 11:33 | W.DCSUMMARY ---
Discharge Summary
Discharge Data
Date of Admission: 12/29/24
Date of Discharge: 12/30/24
-
Pending Results: Yes
Additional Pending Results:
urine culture, stone study results to be followed up with Urology
Hospital Course
54F hx kidney stones HTN NIDDM Obesity here for complicated UTI right kidney stone obstruction. Complicated UTI, CT: Obstructing right ureteropelvic junction calculus. Bilateral nephroliths, appearance suggesting medullary nephrocalcinosis.
Urology consult appreciated s/p stone extraction and right stent placement 12/29, significant symptomatic improvement noted post-procedure. IVF completed, pain control and anti-emetics. No significant Leukocytosis, afebrile, empiric Zosyn
transitioned to Augmentin planned for 7 days. Discussed with Urology, medically stable for discharge home with outpatient follow up recommendations.
Incidental findings on CT for outpatient evaluation:
- Probable noncalcified gallstones. Mild thickening of the wall the gallbladder fundus, suggesting focal adenomyomatosis
- Bilateral adrenal masses, which appear fairly stable dating back to CT scan of November 2020, and appearance and stability compatible with adenomas. No evidence of clinically active adenoma (electrolytes, BP stable)
- outpatient f/u with PCP For both issues
Discharged home with outpatient follow up recommendations.
Discharge Plan
-
Patient Disposition: Home (Routine Discharge)
Discharge Diagnosis/Procedures: Complicated Urinary Tract Infection
Obstructing right ureteropelvic junction calculus (Kidney Stone) status post stone removal and stent placement by Urology 12/29/24
Diabetes
Obesity
Incidental findings on CT for outpatient follow up with primary care provider
- Probable noncalcified gallstones. Mild thickening of the wall the gallbladder fundus, suggestive focal adenomyomatosis (benign growth)
- Bilateral adrenal masses, which appear fairly stable dating back to CT scan of November 2020, and appearance and stability compatible with adenomas (benign)
Condition: Fair
Diet: Diabetic, Carb Controlled
Activity: As tolerated
Driving Restrictions: As prior to admission
Bathing Restrictions: None
Activity Restrictions/Additional Instructions:
Follow up with primary care provider in 1 week of discharge and Urology in 2-4 weeks of discharge.
Augmentin prescribed for complicated urinary tract infection related to Kidney stone. To continue for 7 days.
Florastor probiotic has been prescribed to promote gut health while on antibiotics as above. Probiotics are available over the counter. Ok to stop probiotics when off antibiotics.
Please take medications as prescribed/recommended and follow up with primary care provider and/or other healthcare provider involved in your care for further adjustments to your medication regimen as necessary.
Referrals:
Pranav Aguirre MD [Active, Urology] - in two to four weeks
Referral Note: stone broken stented expect frequency urgency and blood in urine call DR Aguirre [phone] ask for Ms Raymundo and schedule scope and stent removal last week of December or first week of january.
Eugene Molina MD [Family Provider, Family Practice] - in one week
Prescriptions:
New
amoxicillin-pot clavulanate 875-125 mg Tablet
1 tab PO Q12 7 Days Qty: 14 0RF
Saccharomyces boulardii 250 mg Capsule
250 mg PO BID 7 Days Qty: 14 0RF
Rx Instructions:
to promote gut health while on antibiotics. Ok to stop when off antibiotics.
Discharge Orders:
Discharge Patient (As Directed); Ordered 12/30/24
Ordered By: Lalit Westfall
Discharge Date and Time
Discharge Date/Time: 12/30/24 12:55
Print Language: NIUEAN
--- NOTE | 2024-12-30 11:54 | CM ---
Patient will d/c home today.
No CM needs at this time
Plan: Home today, no needs
[2024-12-30 12:10] LABS: Glucose - Point of Care 201 mg/dl (70-99)
--- NOTE | 2024-12-30 12:14 | W.PN.URO.CBU ---
Today's Communication / Plan
-
d/c
Assessment / Plan
-
impassable stone removed stented home on po abs
Diagnosis
-
Date of Service: December 30, 2024
-
Patient Diagnosis:
Post Op Day:
Patient Diagnosis:
rt upj 9 m sytone chills h/o urosepsis september 2023
Post Op Day:
1 STONE REMOVED STENTED ASX
Subjective
-
FEELS WELL
Objective
-
Vital Signs
Temp Pulse Resp BP Pulse Ox
98.2 F 69 16 125/64 93
12/30/24 11:20 12/30/24 11:20 12/30/24 11:20 12/30/24 11:20 12/30/24 11:20
Intake and Output
12/29/24 12/30/24 12/31/24
06:59 06:59 06:59
Intake Total 2260 / 2260 680 / 680
Balance 2260 / 2260 680 / 680
Intake:
Oral fluids 960 / 960 480 / 480
IV fluids (Total) 1200 / 1200 200 / 200
normosol 500 / 500
IV piggybacks 100 / 100
Other:
Number of approximated MODERATE 3 1
amounts of urine
Laboratory Results
12/30/24 06:16
12/30/24 06:16
Review of Systems
-
: Frequency
Physical Exam
-
General - well developed, well nourished, no acute distress
Chest - clear bilaterally
Abdomen - soft, non-tender, positive bowel sounds, no CVAT, no incisional pain or distention
Genitalia - normal
Rectal - normal
Skin - warm & dry with no rash
Neuro - AOx3, no motor deficits
Extremities - no clubbing, no cyanosis, no edema
Incision - clean, dry
Dressing - clean, dry, intact
Counseling
-
home
Care Review
Data Reviewed
Discussed with: Hospitalist
== END 2024-12-30 12:55 | disposition home or self-care (01) | DRG 660 ==
LOC: 2 SOUTH 13:49
PROVIDERS: Physician Assistant; ADMITTING PHYSICIAN Internal Medicine; ATTENDING PHYSICIAN Internal Medicine; EMERGENCY PHYSICIAN Emergency Medicine; FAMILY PHYSICIAN Family Medicine; OTHER PHYSICIAN Specialist
PROC: 0TC68ZZ Extirpation of Matter from Right Ureter, Via Natural or Artificial Opening Endoscopic (ICD-10-PCS; 2024-12-29)
PROC: 0T768DZ Dilation of Right Ureter with Intraluminal Device, Via Natural or Artificial Opening Endoscopic (ICD-10-PCS; 2024-12-29)
DX: N20.2 Calculus of kidney with calculus of ureter (principal); N13.6 Pyonephrosis; Q61.5 Medullary cystic kidney; E11.9 Type 2 diabetes mellitus without complications; F17.200 Nicotine dependence, unspecified, uncomplicated; N30.20 Other chronic cystitis without hematuria; E66.9 Obesity, unspecified; K59.00 Constipation, unspecified; K64.4 Residual hemorrhoidal skin tags; K80.20 Calculus of gallbladder without cholecystitis without obstruction; E27.8 Other specified disorders of adrenal gland; I10 Essential (primary) hypertension; D35.02 Benign neoplasm of left adrenal gland; D35.01 Benign neoplasm of right adrenal gland; N29 Other disorders of kidney and ureter in diseases classified elsewhere; Z87.442 Personal history of urinary calculi; Z90.49 Acquired absence of other specified parts of digestive tract; Z68.30 Body mass index [BMI] 30.0-30.9, adult
CPT/HCPCS: 74018; 74177; 76000; 80048; 80053; 81003; 81015; 82962; 83036; 83690; 85025; 85027; 87086; 96365; 96375; 99285; C2617; Q9967